=== PATIENT | male | born 1945 | race Caucasian/White ===

== ENCOUNTER → 2018-06-17 10:41 | Outpatient (CLI) | payer OTHER, SELFPAY ==
[2018-06-17 11:26] LABS: Add Manual Diff / Slide Review NO; Basophils Percent Auto 0.9 % (0-2); Eosinophils Percent Auto 2.5 % (2-4); Hematocrit 50.7 % (41-53); Hemoglobin 17.6 g/dL (13.5-17.5); Lymphocytes Percent Auto 31.2 % (25-40); Mean Corpuscular HGB Conc 34.6 % (30-36); Mean Corpuscular Hemoglobin 32.8 PG (26-34); Mean Corpuscular Volume 94.7 fL (80-100); Monocytes Percent Auto 10.9 % (3-14); Neutrophils Absolute Auto 2100 /uL (3000-5900); Neutrophils Percent Auto 54.5 % (50-75); Platelet Count 119 X10^3/uL (150-400); Red Blood Cell Count 5.36 X10^6/uL (4.5-5.9); Red Cell Distribution Width 13.6 % (11.6-14.8); White Blood Cell Count 3.9 X10^3/uL (4.5-11.0)
[2018-06-17 11:57] LABS: Alanine Aminotransferase 38 IU/L (21-72); Albumin 4.7 g/dL (3.5-5.0); Albumin Globulin Ratio 1.7 (1.0-2.8); Alkaline Phosphatase 48 U/L (38-126); Aspartate Aminotransferase 43 IU/L (17-59); Bilirubin Total 1.7 mg/dL (0.2-1.3); Blood Urea Nitrogen 24 mg/dL (9-20); Calcium 10.1 mg/dL (8.4-10.2); Carbon Dioxide 31 mmol/L (22-32); Chloride 101 mmol/L (98-107); Cholesterol 141 mg/dL (140-199); Estimated Glomerular Filt Rate > 60.0 mL/min (>60); Globulin 2.8 g/dL (1.7-4.1); Glucose 94 mg/dL (80-110); HDL Cholesterol 57 mg/dL (40-60); HEMOLYSIS < 15 (0-50); LDL Cholesterol Calculated 72 mg/dL (<100); Potassium 4.5 mmol/L (3.4-5.1); Sodium 142 mmol/L (137-145); Total Protein 7.5 g/dL (6.3-8.2); Triglycerides 61 mg/dL (35-150)
== END ==
PROVIDERS: Family Provider Internal Medicine; PCP Internal Medicine; Visit Provider Internal Medicine Cardiovascular Disease
DX: Z95.2 Presence of prosthetic heart valve (principal)
CPT/HCPCS: 36415; 80053; 80061; 85025

== ENCOUNTER → 2018-08-05 09:37 | Outpatient (CLI) | payer OTHER, SELFPAY ==
--- NOTE | 2018-08-05 | DI.US.S_ITS ---
PROCEDURE: US CAROTID DOPPLER BI INDICATIONS: BILATERAL CAROTID BRUITS TECHNIQUE: Color and pulse Doppler interrogation was performed of both carotid systems, with image documentation and velocity measurements. COMPARISON: None. FINDINGS: Stenosis calculations are based on SRU (Society of Radiologists in Ultrasound) criteria. Right side: Brachial blood pressure: 148/80 mm Hg. Common carotid artery peak systolic velocity: 78 cm/sec. Internal carotid artery peak systolic velocity: 88 cm/sec. Internal carotid artery end diastolic velocity: 19 cm/sec. External carotid artery peak systolic velocity: 51 cm/sec. ICA/CCA peak systolic ratio: 1.1. Urban scale imaging description: Moderate scattered plaque. Percent internal carotid artery stenosis: Less than 50%. Vertebral artery: Flow direction is antegrade. Left side: Brachial blood pressure: 156/80 mm Hg. Common carotid artery peak systolic velocity: 40 cm/sec. Internal carotid artery peak systolic velocity: 62 cm/sec. Internal carotid artery end diastolic velocity: 18 cm/sec. External carotid artery peak systolic velocity: 82 cm/sec. ICA/CCA peak systolic ratio: 1.6. Urban scale imaging description: Moderate scattered plaque. Percent internal carotid artery stenosis: Less than 50%. Vertebral artery: Not visualized. IMPRESSION: Less than 50% bilateral internal carotid artery stenosis. Dictated by: Ector Dominguez [facility] Interpreted: Matthew Yuen MD on 08/05/2018 at 10:40 Approved by: Matthew Yuen M.D. on 08/05/2018 at 11:09
== END ==
PROVIDERS: Family Provider Internal Medicine; PCP Internal Medicine; Visit Provider Internal Medicine Cardiovascular Disease
DX: R09.89 Other specified symptoms and signs involving the circulatory and respiratory systems (principal); I65.23 Occlusion and stenosis of bilateral carotid arteries
CPT/HCPCS: 93880

== ENCOUNTER → 2019-05-02 09:33 | Outpatient (CLI) | payer OTHER, SELFPAY ==
[2019-05-02 10:49] LABS: Cholesterol 184 mg/dL (140-199); HDL Cholesterol 43 mg/dL (40-60); LDL Cholesterol Calculated 123 mg/dL (<100); Triglycerides 90 mg/dL (35-150)
== END ==
PROVIDERS: Family Provider Internal Medicine; PCP Internal Medicine; Visit Provider Hospitalist
DX: I25.10 Atherosclerotic heart disease of native coronary artery without angina pectoris (principal)
CPT/HCPCS: 36415; 80061

== ENCOUNTER → 2019-09-28 19:10 | Outpatient (ROUT) | payer OTHER, SELFPAY ==
[2019-09-28 20:01] LABS: Aspartate Aminotransferase 41 IU/L (17-59); Blood Urea Nitrogen 21 mg/dL (9-20); Carbon Dioxide 29 mmol/L (22-32); Chloride 98 mmol/L (98-107); Cholesterol 184 mg/dL (140-199); Estimated Glomerular Filt Rate > 60.0 mL/min (>60); Glucose 137 mg/dL (80-110); HDL Cholesterol 51 mg/dL (40-60); HEMOLYSIS 19 (0-50); LDL Cholesterol Calculated 113 mg/dL (<100); Potassium 3.8 mmol/L (3.4-5.1); Sodium 138 mmol/L (137-145); Triglycerides 98 mg/dL (35-150)
[2019-09-28 20:28] LABS: TSH w/ Reflex to FT4 3.54 uIU/mL (0.47-4.68)
[2019-09-28 20:29] LABS: Prostate Specific Antigen Scrn 1.44 ng/mL (0.1-4.0)
== END ==
PROVIDERS: Family Provider Internal Medicine; PCP Internal Medicine; Visit Provider Internal Medicine
DX: I10 Essential (primary) hypertension (principal); I25.10 Atherosclerotic heart disease of native coronary artery without angina pectoris; N52.9 Male erectile dysfunction, unspecified; E78.2 Mixed hyperlipidemia
CPT/HCPCS: 80048; 80061; 84443; 84450; G0103

== ENCOUNTER → 2020-04-07 11:30 | Outpatient (CLI) | payer OTHER, SELFPAY ==
[2020-04-08 18:13] LABS: COVID19 Sendout Not Detected (Not Detect)
== END ==
PROVIDERS: Family Provider Internal Medicine; PCP Internal Medicine; Visit Provider Physician Assistant
DX: Z11.59 Encounter for screening for other viral diseases (principal)
CPT/HCPCS: 87635

== ENCOUNTER → 2020-04-09 08:54 | Outpatient (CLI) | payer OTHER, SELFPAY ==
[2020-04-09 10:10] LABS: BUN Creatinine Ratio 18.3 (6-22); Blood Urea Nitrogen 19 mg/dL (9-20); Calcium 9.4 mg/dL (8.4-10.2); Carbon Dioxide 29 mmol/L (22-32); Chloride 102 mmol/L (98-107); Cholesterol 165 mg/dL (140-199); Estimated Glomerular Filt Rate > 60.0 mL/min (>60); Glucose 115 mg/dL (80-110); HDL Cholesterol 57 mg/dL (40-60); HEMOLYSIS < 15 (0-50); LDL Cholesterol Calculated 94 mg/dL (<100); Potassium 4.2 mmol/L (3.4-5.1); Sodium 136 mmol/L (137-145); Triglycerides 69 mg/dL (35-150)
== END ==
PROVIDERS: Family Provider Internal Medicine; PCP Internal Medicine; Referring Provider Hospitalist; Visit Provider Hospitalist
DX: I25.10 Atherosclerotic heart disease of native coronary artery without angina pectoris (principal); Z95.1 Presence of aortocoronary bypass graft; I10 Essential (primary) hypertension
CPT/HCPCS: 36415; 80048; 80061

== ENCOUNTER 2020-04-10 08:23 | Day surgery (SDC) | payer OTHER, SELFPAY ==
--- NOTE | 2020-04-09 18:32 | PM.PREOP ---
Pre-operative Note COVID-19 COVID-19 status: Negative Interval Note History & Physical reviewed/Exam performed by Physician: Yes Changes to H&P: No H&P completed within 30 days and has changed as indicated here:: Patient had Chinese yoghurt 2 hours prior to arriving in the operating room suite. Surgery was delayed for 6 hours to allow for digestion.
--- NOTE | 2020-04-10 07:53 | P.OP_ITS ---
Operative Date/Time/Diagnoses Date of procedure: 04/10/20 Time of procedure: 09:45 Procedure & Clinicians Procedure: Preoperative diagnoses: 1. Right cortical and nuclear sclerotic cataract 2. Astigmatism which is to be corrected with a toric intraocular lens implant. 3. Desire for a multifocal implant. 4. Bovine aortic valve. 5. Sleep apnea CPAP dependent 6. Hypertension. 7. Status post triple bypass. 8. Status post strabismus surgery for exotropia. Postoperative diagnoses: 1. Cataract removal with phacoemulsification withPanoptix toric posterior chamber intraocular lens implant placed. Procedure: Phacoemulsification with posterior chamber Panoptix toric intraocular lens implant. Surgeon: Donna Narvaez MD Complications: None Specimen: None Implant: TFAT40+20.5 [place] 176. 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 He has had mild previous amblyopia in this eye and strabismus surgery with excellent result. 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 A Panoptix toric intra-ocular lens implant chosen. He understands there may still be residual prescription or need for glasses. The patient was taken to the operating room and proparacaine drops placed. Indelible ink macario were placed at the 90 and 180 degree meridian. The patient was placed on the operating room table and given IV sedation. A retrobulbar block insert consisting of 6 cc of 2% xylocaine without epinephrine mixed half and half with 0.5% Marcaine with 1 cc of hyaluronidase added is placed between the medial and lateral 1/3 of the inferior orbital rim. The eye is manually massaged for 30 sec, prepped using Betadine solution, and draped in the usual sterile fashion. Temporal approach was made, a 1 mm side-port incision was made 90? from the proposed corneal wound. Phenylephrine 1.5% mixed with 1% xylocaine 0.2 cc was placed into the anterior chamber. Viscoat followed by Healon was then placed. A 2.6 mm clear incision with a 2.6 mm blade was placed at the 170 degree meridian. Patient has severe sleep apnea and had to be constantly awakened during surgery. A 360 degree capsulorrhexis style capsulotomy was then performed with a cystitome needle on a Healon. Hydrodelineation and hydrodissection were performed. The phacoemulsification unit is introduced, and sculpting used to groove the central lens. It is then removed in chopping mode. Epi nucleus is removed with epinuclear mode and irrigation aspiration was used to remove the peripheral cortex. There is some cortex trapped under the incision which is then removed using extra viscoelastic. The posterior capsule is polished. The intraocular lens is selected, inspected, power confirmed, and placed in the posterior chamber at the desired meridian of 176 degrees. Perkinje images were used to center the IOL in the optical centerl. The pupil was not constricted. The wound was stromally hydrated and tested for leaks, there was none and it was left sutureless. Vigamox 0.1 cc was placed into the anterior chamber. Kenalog 0.2 cc was placed in the superior subconjunctival space. A drop of antibiotic and was placed and the eye was patched and shielded. The patient was stable and returned to the recovery room in excellent condition. Dictated by: Donna Narvaez MD Copy to: [facility] Same procedure as scheduled: Yes
[2020-04-10] MEDS: PROPARACAINE 0.5% OPHTH SOL 2 DROPS EYE-OP (13:41)
[2020-04-10] MEDS: CATARACT EYE COMPOUND (10 DROPS/SYRINGE) 3 DROPS EYE-OP (13:41)
[2020-04-10 13:42] VITALS: BP 177/89; PULSE 54; RESP 16; TEMP 36.3; O2SAT 99; BMI 30.1
[2020-04-10] MEDS: CHONDROIDTIN/SOD HYALURONATE 1.05 ML SYRINGE INTRAOCULA (14:37)
[2020-04-10] MEDS: ERYTHROMYCIN OPHTH 1 GM OINT 1 APPLIC EYE-RIGHT (14:37)
[2020-04-10] MEDS: HYALURONATE SODIUM 10 MG/ML SYRINGE INJ (14:37)
[2020-04-10] MEDS: MOXIFLOXACIN INJ 5 MG/ML VIAL EYE-OP (14:37)
[2020-04-10] MEDS: PHENYLEPHRINE/LIDOCAINE VIAL (OR) 0.2 ML EYE-OP (14:38)
[2020-04-10] MEDS: TRIAMCINOLONE 50 MG/5 ML VIAL INJ (14:38)
[2020-04-10] MEDS: BALANCED SALT IRRIG SOLN NO.2 500 ML, EPINEPHrine 1 MG IRR (14:39)
[2020-04-10] MEDS: LIDOCAINE 2% 4 ML, BUPIVACAINE 0.5% (PF) 4 ML, HYALURONIDASE 150 UNIT INJ (14:40)
[2020-04-10 15:20] VITALS: BP 151/82; PULSE 53; RESP 16; TEMP 36.6; O2SAT 97
== END 2020-04-10 15:40 | disposition home or self-care (01) ==
LOC: OR 08:25
PROVIDERS: PCP Internal Medicine; Referring Provider Internal Medicine; Visit Provider Ophthalmology
PROC: (CPT 66984; principal; 2020-04-10 09:45)
DX: H25.811 Combined forms of age-related cataract, right eye (principal); H52.201 Unspecified astigmatism, right eye; G47.33 Obstructive sleep apnea (adult) (pediatric); I10 Essential (primary) hypertension
CPT/HCPCS: 66984; J0171; J2250; J2704; J3301; J3470; V2787; V2788

== ENCOUNTER → 2020-04-21 10:11 | Outpatient (CLI) | payer OTHER, SELFPAY ==
[2020-04-23 03:36] LABS: COVID19 Sendout Not Detected (Not Detected)
== END ==
PROVIDERS: PCP Internal Medicine; Visit Provider Physician Assistant
DX: Z11.59 Encounter for screening for other viral diseases (principal)
CPT/HCPCS: 87635

== ENCOUNTER 2020-04-24 09:11 | Day surgery (SDC) | payer OTHER, SELFPAY ==
--- NOTE | 2020-04-22 12:47 | PM.PREOP ---
Pre-operative Note COVID-19 COVID-19 status: Negative Interval Note History & Physical reviewed/Exam performed by Physician: Yes Changes to H&P: No
[2020-04-24] VITALS (7 sets, daily range): BP systolic 112–163; BP diastolic 68–86; PULSE 45–62; RESP 13–16; TEMP 36.2–36.6; O2SAT 91–98; BMI 30.6
[2020-04-24] MEDS: PROPARACAINE 0.5% OPHTH SOL 2 DROPS EYE-OP ×2 (10:03→10:50)
[2020-04-24] MEDS: CATARACT EYE COMPOUND (10 DROPS/SYRINGE) 3 DROPS EYE-OP (10:05)
--- NOTE | 2020-04-24 10:39 | P.OP_ITS ---
Operative Date/Time/Diagnoses Date of procedure: 04/24/20 Time of procedure: 10:45 Procedure & Clinicians Procedure: Preoperative diagnoses: 1. Nuclear sclerotic cataract 2. Astigmatism which is to be corrected with a toric intraocular lens implant. 3. Presbyopia which he likes to correct with a multifocal intraocular lens implant. 4. Severe sleep apnea with use of CPAP Postoperative diagnoses: 1. Cataract removal with phacoemulsification with PanOptix toric posterior chamber intraocular lens implant placed. Procedure: Phacoemulsification with posterior chamber toric intraocular lens implant. Surgeon: Donna Narvaez MD Complications: None Specimen: None Implant: TFAT40+21.0 [place] 173 Blood loss: None Anesthesia: Retrobulbar with monitored standby and laryngeal mask airw Aangela massy due to sleep apnea. Description of procedure: Patient presents with a complaint of decreased vision due to cataract which is affecting activities of daily living distance and near. 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 This is his dominant eye sees a slight a mblyopia in his right. He understands the extra risk of surgery during COVID-19 and has tested negative for the virus.The patient wants surgery to improve vision and astigmatism. Due to severe at sleep apnea during his last surgery it was decided it was best to give him a laryngeal mask airway in addition to his retrobulbar block. The patient was taken to the operating room and proparacaine drops placed. Indelible ink macario were placed at the 90 and 180 degree meridian. The patient was placed on the operating room table and given IV sedation and then a laryngeal airway inserted by anesthesia. A retrobulbar block insert consisting of 6 cc of 2% xylocaine without epinephrine mixed half and half with 0.5% Marcaine with 1 cc of hyaluronidase added is placed between the medial and lateral 1/3 of the inferior orbital rim. The eye is manually massaged for 30 sec, prepped using Betadine solution, and draped in the usual sterile fashion. Temporal approach was made, a 1 mm side-port incision was made 90? from the proposed corneal wound. Phenylephrine 1.5% mixed with 1% xylocaine 0.2 cc was placed into the anterior chamber. Viscoat followed by Healon was then placed. A 2.6 mm clear incision with a 2.6 mm blade was placed at the 170 degree meridian. A 360 degree capsulorrhexis style capsulotomy was then performed with a cystitome needle on a [employer]. Hydrodelineation and hydrodissection were performed. The phacoemulsification unit is introduced, and sculpting used to groove the central lens. It is then removed in chopping mode. Epi nucleus is removed with epinuclear mode and irrigation aspiration was used to remove the peripheral cortex. The posterior capsule is polished. The intraocular lens is selected, inspected, power confirmed, and placed in the posterior chamber at the desired meridian of 173 degrees. The pupil was not constricted. The wound was stromally hydrated and tested for leaks, there was none and it was left sutureless. Vigamox 0.1 cc was placed into the anterior chamber. Kenalog 0.2 cc was placed in the superior subconjunctival space. A drop of antibiotic and was placed and the eye was patched and shielded. The patient was stable and returned to the recovery room in excellent condition. Dictated by: Donna Narvaez MD Copy to: [facility] Same procedure as scheduled: Yes
[2020-04-24] MEDS: LIDOCAINE 2% 4 ML, BUPIVACAINE 0.5% (PF) 4 ML, HYALURONIDASE 150 UNIT INJ (11:00)
[2020-04-24] MEDS: CHONDROIDTIN/SOD HYALURONATE 1.05 ML SYRINGE INTRAOCULA (11:12)
[2020-04-24] MEDS: HYALURONATE SODIUM 10 MG/ML SYRINGE INJ (11:12)
[2020-04-24] MEDS: MOXIFLOXACIN INJ 5 MG/ML VIAL EYE-OP (11:12)
[2020-04-24] MEDS: ERYTHROMYCIN OPHTH 1 GM OINT 1 APPLIC EYE-LEFT (11:12)
[2020-04-24] MEDS: TRIAMCINOLONE 50 MG/5 ML VIAL INJ (11:13)
[2020-04-24] MEDS: PHENYLEPHRINE/LIDOCAINE VIAL (OR) 0.2 ML EYE-OP (11:13)
[2020-04-24] MEDS: BALANCED SALT IRRIG SOLN NO.2 500 ML, EPINEPHrine 1 MG IRR (11:14)
== END 2020-04-24 12:45 | disposition home or self-care (01) ==
LOC: OR 09:13
PROVIDERS: PCP Internal Medicine; Referring Provider Ophthalmology; Visit Provider Ophthalmology
PROC: (CPT 66984; principal; 2020-04-24 10:45)
DX: H25.12 Age-related nuclear cataract, left eye (principal); H52.202 Unspecified astigmatism, left eye; H52.4 Presbyopia; G47.33 Obstructive sleep apnea (adult) (pediatric)
CPT/HCPCS: 66984; J0171; J2704; J3301; J3470; V2788

== ENCOUNTER → 2021-03-29 09:34 | Outpatient (CLI) | payer OTHER, SELFPAY ==
[2021-03-29 10:34] LABS: COVID19 -Nasal RAPID Negative (Negative)
== END ==
PROVIDERS: PCP Internal Medicine; Referring Provider Physician Assistant; Visit Provider Physician Assistant
DX: Z20.822 Contact with and (suspected) exposure to COVID-19 (principal)
CPT/HCPCS: 87635

== ENCOUNTER → 2021-03-31 08:52 | Outpatient (CLI) | payer OTHER, SELFPAY ==
--- NOTE | 2021-03-31 | DI.ECHO.S_ITS ---
[place] [facility]---------+ [facility] +---------+ : : [address] : : : : [id number] : : : : Phone: [phone]+ Echocardiogram Report + + :Name: CRIS ROSADO Study Date: 03/31/2021 Height: 70 in : :[facility] : Weight: 220 lb : : Gender: Male BSA: 2.2 m2 : :: 1945 Age: 75 yrs BP: 198/107 mmHg: :Reason For Study: Hyperlipidemia : :Ordering Physician: Corina : :Ez Leong Performed By: Juanito Terry : :Referring: CORINA LEONG : + + Interpretation Summary The left ventricle is normal in size. There is moderate concentric left ventricular hypertrophy. The ejection fraction is estimated to be 55-60%. Diastolic parameters suggest a pseudonormalization pattern, consistent with probable elevated filling pressures. The right ventricle is normal size. Right ventricular systolic function is mildly reduced. Right ventricular systolic function has not changed since previous exam. There is restriction of posterior mitral leaflet. Cannot rule out mitral valve repair. No significant mitral stenosis seen. There is moderate mitral regurgitation. Compared to the prior echo study, there has been no change in the severity of mitral regurgitation. There is a bioprosthetic aortic valve. The prosthetic aortic valve is well-seated. The peak aortic velocity is 1.92 m/sec. The aortic valve mean gradient is 9.0 mmHg. The peak aortic velocity on the previous exam was 2.9 m/sec. There is mild aortic regurgitation. There is moderate pulmonic regurgitation. The IVC is of normal diameter and collapses greater than 50% with a sniff. This suggests a low right atrial pressure of 3 mm Hg. Mild atherosclerotic plaque(s) in the aortic arch. Procedure: A two-dimensional transthoracic echocardiogram with color flow and Doppler was performed. The study quality was technically adequate. Comparison is made with the echocardiogram of 1943. The patient had a bundle branch block rhythm during the exam. Left Ventricle: The left ventricle is normal in size. There is moderate concentric left ventricular hypertrophy. There is no thrombus. The ejection fraction is estimated to be 55-60%. Septal motion is consistent with conduction abnormality. Diastolic parameters suggest a pseudonormalization pattern, consistent with probable elevated filling pressures. Right Ventricle: The right ventricle is normal size. Right ventricular systolic function is mildly reduced. Right ventricular systolic function has not changed since previous exam. Atria: The left atrium is severely dilated. There has been no significant change since the previous study. The right atrium is mildly dilated. There is no Doppler evidence for an interatrial shunt. Mitral Valve: There is mild mitral annular calcification. The mitral valve leaflets are mildly calcified. There is restriction of posterior mitral leaflet. Cannot rule out mitral valve repair. No significant mitral stenosis seen. The mitral regurgitant jet is eccentrically directed. There is moderate mitral regurgitation. Compared to the prior echo study, there has been no change in the severity of mitral regurgitation. Aortic Valve: There is a bioprosthetic aortic valve. The prosthetic aortic valve is well-seated. There is probable normal prosthetic aortic valve function. The peak aortic velocity is 1.92 m/sec. The aortic valve mean gradient is 9.0 mmHg. The peak aortic velocity on the previous exam was 2.9 m/sec. There is mild aortic regurgitation. Tricuspid Valve: The tricuspid valve is normal. Pulmonary artery pressures cannot be estimated because of the lack of a measurable TR jet velocity but the IVC suggests a CVP of around 3 mmHg. There is mild tricuspid regurgitation. Pulmonic Valve: The pulmonic valve leaflets are thin and pliable; valve motion is normal. There is moderate pulmonic regurgitation. Great Vessels: The aortic root is not well visualized. The ascending aorta is mildly enlarged. Mild atherosclerotic plaque(s) in the aortic arch. The IVC is of normal diameter and collapses greater than 50% with a sniff. This suggests a low right atrial pressure of 3 mm Hg. Pericardium/ Pleura There is no pericardial effusion. There is no pleural effusion. MMode/2D Measurements & Calculations LVIDd: 5.2 cm asc Aorta Diam: 4.1 cm LVIDs: 3.8 cm FS: 26.9 % IVSd: 1.6 cm LVPWd: 1.6 cm LV cox. diameter/BSA (cm/m^2): 2.4 LV sys. diameter/BSA (cm/m^2): 1.7 LA dimension: 5.0 cm RA long axis: 5.8 cm LA A2 area: 27.0 cm2 LA A4 area: 28.1 cm2 LA length (vol): 6.9 cm LA vol: 94.0 ml LA vol index: 43.3 ml/m2 TAPSE_phl: 1.4 cm Doppler Measurements & Calculations Ao V2 max: 192.0 cm/sec LVOT Max Jose: 118.0 cm/sec Ao V2 mean: 142.0 cm/sec LV V1 max P.6 mmHg Ao max P.0 mmHg LV V1 VTI: 24.7 cm Ao mean P.0 mmHg sev ratio: 0.61 Ao V2 VTI: 40.4 cm MV E max jose: 160.0 cm/sec PA V2 max: 179.0 cm/sec MV A max jose: 145.0 cm/sec PA V2 mean: 110.0 cm/sec MV E/A: 1.1 PA mean P.0 mmHg Med Peak E' Jose: 3.6 cm/sec PA pr(Accel): 42.1 mmHg E/E' med: 44.7 Lat Peak E' Jose: 8.0 cm/sec E/E' lat: 19.9 E/e' average: 32.3 MV dec time: 0.30 sec MR VTI: 227.0 cm AV VR_phl: 0.61 MV P1/2t-pr_phl: 89.0 msec Reading Physician:05:36 PM
--- NOTE | 2021-03-31 | DI.NM.S_ITS ---
PROCEDURE: NM MARCOS PERF SPECT R&S PHARM Rest and pharmacological stress myocardial perfusion SPECT with gated imaging and ejection fraction RADIOPHARMACEUTICAL: 25.7 mCi Tc-99m tetrafosmin IV at rest and 35.0 mCi Tc-99m tetrafosmin IV at peak effect of pharmacological stress. [id number] was performed. INDICATIONS: Hyperlipidemia Atherosclerotic heart disease TECHNIQUE: Radiopharmaceutical was injected at peak stress test, and also at rest. SPECT images were obtained. SPECT myocardial perfusion images were displayed in short axis, horizontal long axis, and vertical long axis views. Gated images were reviewed using Truveris software. COMPARISON: None. CARDIAC STRESS: A pharmacologic stress test was performed under the supervision of an attending staff, using an infusion of lexiscan 0.4mg IV X1. Hemodynamic data: There is normal blood pressure and heart rate response to pharmacologic stress. Symptoms: The patient had chest pain with lexiscan. Aminophylline: none EKG: Non-diagnostic ECG due to baseline LBBB; no ectopy. FINDINGS: Raw data: There is good myocardial uptake of radiotracer. No significant motion artifacts. Left ventricle function: Gated images demonstrate significant septal dysynchrony present. No transient ischemic dilation; TID is 1.14 (normal less than 1.3). Left ventricle resting end diastolic volume is 284 mL. Left ventricle stress ejection fraction is 45%; normal range is above 45%. Myocardial perfusion: There is moderate intense fixed defect in the inferior wall and severely intense defect at the apex, consistent with prior infarction. No ischemia. IMPRESSION: Abnormal nuclear stress test consistent with prior infarction. No ischemia. 1) There is moderate intense fixed defect in the inferior wall and severely intense defect at the apex, consistent with prior inferior and apical infarctions. No ischemia. 2) Enlarged left ventricle (EDV 284cc) with mildly reduced systolic function (EF post stress 45%). Significant septal dysynchrony present, probably due to the baseline LBBB. 3) ECG non-diagnostic due to baseline LBBB. 4) Non-diagnostic chest pain with lexiscan. 5) Significant hypertension present during the study (resting BP 170/106mmHg). 6) No prior nuclear stress test available for comparison. Dictated by: Lucy Montalvo MD on 04/01/2021 at 17:27 Approved by: Lucy Montalvo MD on 04/01/2021 at 17:31
== END ==
PROVIDERS: PCP Internal Medicine; Referring Provider Internal Medicine Cardiovascular Disease; Visit Provider Internal Medicine Cardiovascular Disease
DX: I08.3 Combined rheumatic disorders of mitral, aortic and tricuspid valves (principal); I77.89 Other specified disorders of arteries and arterioles; I70.0 Atherosclerosis of aorta; I25.10 Atherosclerotic heart disease of native coronary artery without angina pectoris; E78.5 Hyperlipidemia, unspecified; Z95.2 Presence of prosthetic heart valve
CPT/HCPCS: 78452; 93017; 93306; A9502; J2785

== ENCOUNTER → 2021-04-14 10:49 | Outpatient (CLI) | payer OTHER, SELFPAY ==
[2021-04-14 13:19] LABS: Blood Urea Nitrogen 16 mg/dL (9-20); Carbon Dioxide 30 mmol/L (22-32); Chloride 102 mmol/L (98-107); Estimated Glomerular Filt Rate > 60.0 mL/min (>60); Glucose 116 mg/dL (80-110); HEMOLYSIS < 15 (0-50); Potassium 3.9 mmol/L (3.4-5.1); Sodium 137 mmol/L (137-145)
== END ==
PROVIDERS: PCP Internal Medicine; Referring Provider Internal Medicine Cardiovascular Disease; Visit Provider Internal Medicine Cardiovascular Disease
DX: I10 Essential (primary) hypertension (principal)
CPT/HCPCS: 36415; 80048

== ENCOUNTER → 2021-12-23 10:42 | Outpatient (CLI) | payer OTHER, SELFPAY ==
[2021-12-23 13:36] LABS: BUN Creatinine Ratio 21.1 (6-22); Blood Urea Nitrogen 20 mg/dL (9-20); Calcium 9.8 mg/dL (8.4-10.2); Carbon Dioxide 29 mmol/L (22-32); Chloride 100 mmol/L (98-107); Cholesterol 204 mg/dL (140-199); Estimated Glomerular Filt Rate > 60 mL/min (>60); Glucose 99 mg/dL (80-110); HDL Cholesterol 68 mg/dL (40-60); HEMOLYSIS < 15 (0-50); LDL Cholesterol Calculated 117 mg/dL (<100); Potassium 3.8 mmol/L (3.4-5.1); Sodium 138 mmol/L (137-145); Triglycerides 96 mg/dL (35-150)
== END ==
PROVIDERS: PCP Internal Medicine; Referring Provider Internal Medicine Cardiovascular Disease; Visit Provider Internal Medicine Cardiovascular Disease
DX: E78.5 Hyperlipidemia, unspecified (principal)
CPT/HCPCS: 36415; 80048; 80061

== ENCOUNTER 2022-01-27 14:18 | Emergency (ER) | payer OTHER, SELFPAY ==
[2022-01-27] VITALS (25 sets, daily range): BP systolic 127–182; BP diastolic 60–81; PULSE 45–61; RESP 15–33; TEMP 36.6; O2SAT 93–97
--- NOTE | 2022-01-27 15:04 | DI.RAD.S_ITS ---
PROCEDURE: XR CHEST 1V INDICATIONS: shortness of breath TECHNIQUE: One view of the chest was acquired. COMPARISON: [facility], , CHEST 2 VIEW, 10/29/2009, 11:12. FINDINGS: Surgical changes and devices: None. Lungs and pleura: Minimal left basilar atelectasis and or infiltrate. Right lung and pleural spaces clear Mediastinum: Heart size is enlarged. No vascular congestion present. Mediastinal vascular clips and midline sternal wires present. Cardiac valve prosthesis noted. Bones and chest wall: No suspicious bony lesions. Overlying soft tissues appear unremarkable. IMPRESSION: Minimal left basilar atelectasis and or infiltrate. No pneumothorax. Cardiomegaly without vascular congestion Approved by: Steven Garcia M.D. on 01/27/2022 at 14:48
[2022-01-27 15:29] LABS: Lactate (Lactic Acid) 0.9 mmol/L (0.7-2.1)
[2022-01-27 15:30] LABS: Alanine Aminotransferase 31 IU/L (<50); Albumin 4.5 g/dL (3.5-5.0); Albumin Globulin Ratio 1.4 (1.0-2.8); Alkaline Phosphatase 61 U/L (38-126); Aspartate Aminotransferase 38 IU/L (17-59); BUN Creatinine Ratio 17.7 (6-22); Bilirubin Total 2.4 mg/dL (0.2-1.3); Blood Urea Nitrogen 17 mg/dL (9-20); Calcium 9.5 mg/dL (8.4-10.2); Carbon Dioxide 28 mmol/L (22-32); Chloride 103 mmol/L (98-107); Creatine Kinase 190 U/L (55-170); Estimated Glomerular Filt Rate > 60 mL/min (>60); Globulin 3.2 g/dL (1.7-4.1); Glucose 98 mg/dL (80-110); HEMOLYSIS < 15 (0-50); Potassium 3.8 mmol/L (3.4-5.1); Sodium 139 mmol/L (137-145); Total Protein 7.7 g/dL (6.3-8.2)
[2022-01-27 15:35] LABS: Add Manual Diff / Slide Review NO; Basophils Absolute Auto 0 /uL (0-100); Basophils Percent Auto 0.4 % (0-2); Eosinophils Absolute Auto 200 /uL (0-450); Eosinophils Percent Auto 3.6 % (2-4); Hematocrit 45.2 % (41-53); Hemoglobin 15.6 g/dL (13.5-17.5); Lymphocytes Absolute Auto 1200 /uL (1100-4500); Lymphocytes Percent Auto 22.2 % (25-40); Mean Corpuscular HGB Conc 34.6 % (30-36); Mean Corpuscular Hemoglobin 33.6 PG (26-34); Monocytes Absolute Auto 700 /uL (0-900); Monocytes Percent Auto 13.3 % (3-14); Neutrophils Absolute Auto 3200 /uL (1500-7000); Neutrophils Percent Auto 60.5 % (50-75); Platelet Count 116 X10^3/uL (150-400); Red Blood Cell Count 4.66 X10^6/uL (4.5-5.9); Red Cell Distribution Width 14.2 % (11.6-14.8); White Blood Cell Count 5.2 X10^3/uL (4.5-11.0)
[2022-01-27 15:42] LABS: Troponin I 0.051 ng/mL (0.01-0.034)
[2022-01-27 15:45] LABS: CKMB % Relative Index 2.8 % (1.5-5.0); Creatine Kinase MB 5.41 ng/mL (<2.37)
[2022-01-27 16:21] LABS: COVID19 -Nasal RAPID Negative (Negative)
[2022-01-27 17:21] LABS: Creatine Kinase 156 U/L (55-170)
[2022-01-27 17:34] LABS: NT-proBNP (BNP-Adult 18+) 541 pg/mL (<450); Troponin I 0.059 ng/mL (0.01-0.034)
[2022-01-27 17:36] LABS: CKMB % Relative Index 2.3 % (1.5-5.0); Creatine Kinase MB 3.63 ng/mL (<2.37)
--- NOTE | 2022-01-27 18:28 | ED.WEAKNESS ---
HPI - Weakness General Chief complaint: Shortness of Breath/Dyspnea Stated complaint: Fatigue, dizzy- sent by [facility] Time Seen by Provider: 01/27/22 15:46 Source: patient Mode of arrival: Ambulatory History of Present Illness HPI Narrative: 76M former smoker with extensive cardiac history including CAD, CABG, valve replacements ([place]) HTN, hyperlipidemia presents with fatigue and exertional dyspnea for the past few weeks which has become significantly worse over the past few days. He denies any pain, diaphoresis or nausea. He has worse SOB with exertion and likely laying flat. He had an echo and stress test about a month ago at [facility] which was apparently fine. He denies medication or dietary change. He has had no fever, chills, runny nose, sore throat, abdominal pain or urinary complaints. He's had no travel and is otherwise well and free of complaint. Related Data Home Medications Medication Instructions Recorded Confirmed Respironics Dreamstation CPAP #1 ea 12/22/18 04/24/21 amoxicillin 500 mg capsule 2,000 mg PO ONCE HS PRN 04/10/20 04/24/21 anastrozole 1 mg tablet 2 mg PO QWEEK 04/10/20 04/24/21 aspirin 81 mg tablet,delayed 81 mg PO DAILY 04/10/20 04/24/21 release (Aspirin Low Dose) atorvastatin 10 mg tablet 10 mg PO DAILY 04/10/20 04/24/21 hydrochlorothiazide 12.5 mg tablet 12.5 mg PO DAILY 04/10/20 04/24/21 testosterone cypionate 200 mg/mL 100 mg IM QWEEK 04/10/20 04/24/21 intramuscular kit Previous Rx's Medication Instructions Recorded furosemide 40 mg tablet 40 mg PO DAILY #3 tab 01/27/22 Allergies Allergy/AdvReac Type Severity Reaction Status Date / Time Sulfa (Sulfonamide Allergy Unknown as a Verified 04/24/21 09:39 Antibiotics) child, doesn't remember Review of Systems Review of Systems Narrative: GENERAL: Denies chills, fatigue, malaise, fever, sweats. HEENT: Denies sinus pain, ear pain, sore throat, difficulty swallowing, dizziness. RESPIRATORY: See HPI CARDIOVASCULAR: Denies chest pain, palpitations, orthopnea, edema, GASTROINTESTINAL: Denies nausea, vomiting, abdominal pain, diarrhea, constipation, melena. : Denies dysuria, frequency, incontinence, hematuria, urinary retention. MUSCULOSKELETAL: denies weakness, joint pain, or bony pain SKIN: Denies rash, skin lesions, or other NEUROLOGIC: Denies weakness, headache, numbness, change in speech, confusion, seizures, incoordination. PSYCHIATRIC: No concerning psychosocial issues. 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 Obstructive sleep apnea of adult Surgical History History of uvulopalatopharyngoplasty S/P AVR (aortic valve replacement) S/P CABG x 2 Social History marital status: details: barrie Thompson number of children: 3 household members: spouse lives independently: Yes caregiver/support person: No housing: house Smoking Status: Former smoker alcohol intake: current during the past year weight has: remained stable additional social history: Goal weight is 170 lbs Smoking Status: Former smoker alcohol intake frequency: 0-2 drinks per day Substance Use Type: does not use Exam Narrative Exam Narrative: GENERAL: [76] year old patient appears stated age. Well-developed patient, in mild distress. HEAD: Atraumatic. Normocephalic. EYES: Pupils equal round and reactive. Extraocular motions intact. No scleral icterus. No injection or drainage. ENT: Nose without bleeding, purulent drainage. Throat without erythema, tonsillar hypertrophy or exudate. Airway patent. NECK: Trachea midline. Non tender CARDIOVASCULAR: Regular rate and rhythm without murmurs, gallops, or rubs. RESPIRATORY: Faint crackles in bilateral bases, no significant increased work of breathing GASTROINTESTINAL: Abdomen soft, non-tender, nondistended. EXTREMITIES: No edema or joint tenderness. BACK: Nontender without deformity or crepitance. No flank tenderness. NEURO: AOx3. SKIN: No rash or erythema of visible areas Initial Vital Signs Initial Vital Signs: Vital Signs Temperature 97.8 F 01/27/22 14:41 Pulse Rate 59 L 01/27/22 14:41 Respiratory Rate 24 01/27/22 14:41 Blood Pressure 182/81 H 01/27/22 14:41 Pulse Oximetry 97 01/27/22 14:41 Course Orders Ordered: ED Orders 01/27/22 20:18 Troponin & CK Cardiac Panel Stat Discontinued Medications Furosemide (Furosemide 40 Mg Tablet) 40 mg PO NOW ONE Stop: 01/27/22 21:10 Last Admin: 01/27/22 21:24 Dose: 40 mg Documented by: ELLEN Consultations Consultation #1: Discussed with on-call Cardiology as Husam, patient's history reviewed including EKGs, labs etc.. He has had left bundle branch block for quite some time and resting heart rate tends to be in the 50s per prior notes according to cardiology. We discussed presentation and agree that after 2nd troponin as long as it is unremarkable patient should be diuresed were few days as an outpatient and close follow-up encouraged. Vital Signs Vital signs: Vital Signs - 8 hr 01/27/22 18:30 01/27/22 18:31 01/27/22 19:00 Pulse Rate 50 L 53 L 49 L Respiratory Rate 19 27 H 23 Blood Pressure 127/69 Pulse Oximetry 94 94 94 01/27/22 19:01 01/27/22 19:30 01/27/22 19:31 Pulse Rate 54 L 52 L 50 L Respiratory Rate 28 H 27 H 23 Blood Pressure 143/64 H 179/68 H Pulse Oximetry 94 95 94 01/27/22 20:00 01/27/22 20:01 01/27/22 20:30 Pulse Rate 50 L 49 L 50 L Respiratory Rate 22 22 Blood Pressure 144/67 H Pulse Oximetry 95 94 94 01/27/22 21:00 Pulse Rate 54 L Respiratory Rate 20 Blood Pressure Pulse Oximetry 97 MDM - Weakness Lab Data Result diagrams: 01/27/22 14:48 01/27/22 14:48 Labs: Lab Results 01/27/22 01/27/22 01/27/22 Range/Units 14:48 14:48 14:48 WBC 5.2 (4.5-11.0) X10^3/uL RBC 4.66 (4.5-5.9) X10^6/uL Hgb 15.6 (13.5-17.5) g/dL Hct 45.2 (41-53) % MCV 97.0 (80-100) fL MCH 33.6 (26-34) PG MCHC 34.6 (30-36) % RDW 14.2 (11.6-14.8) % Plt Count 116 L (150-400) X10^3/uL Neut % (Auto) 60.5 (50-75) % Lymph % (Auto) 22.2 L (25-40) % Mcintosh % (Auto) 13.3 (3-14) % Eos % (Auto) 3.6 (2-4) % Baso % (Auto) 0.4 (0-2) % Neut # (Auto) 3200 (0078-4317) /uL Lymph # (Auto) 1200 (2710-3980) /uL Mcintosh # (Auto) 700 (0-900) /uL Eos # (Auto) 200 (0-450) /uL Baso # (Auto) 0 (0-100) /uL Sodium 139 (137-145) mmol/L Potassium 3.8 (3.4-5.1) mmol/L Chloride 103 (98-107) mmol/L Carbon Dioxide 28 (22-32) mmol/L BUN 17 (9-20) mg/dL Creatinine 0.96 (0.66-1.25) mg/dL Estimated GFR > 60 (>60) mL/min BUN/Creatinine Ratio 17.7 (6-22) Glucose 98 (80-110) mg/dL Lactate 0.9 (0.7-2.1) mmol/L Calcium 9.5 (8.4-10.2) mg/dL Total Bilirubin 2.4 H (0.2-1.3) mg/dL AST 38 (17-59) IU/L ALT 31 (<50) IU/L Alkaline Phosphatase 61 (38-126) U/L Total Creatine Kinase 190 H (55-170) U/L CK-MB (CK-2) 5.41 H (<2.37) ng/mL CK-MB (CK-2) Rel Index 2.8 (1.5-5.0) % Troponin I 0.051 H (0.01-0.034) ng/mL NT-Pro-B Natriuret Pep (<450) pg/mL Total Protein 7.7 (6.3-8.2) g/dL Albumin 4.5 (3.5-5.0) g/dL Globulin 3.2 (1.7-4.1) g/dL Albumin/Globulin Ratio 1.4 (1.0-2.8) SARS-CoV-2 (PCR) (Negative) 01/27/22 01/27/22 01/27/22 Range/Units 14:48 15:56 17:02 WBC (4.5-11.0) X10^3/uL RBC (4.5-5.9) X10^6/uL Hgb (13.5-17.5) g/dL Hct (41-53) % MCV (80-100) fL MCH (26-34) PG MCHC (30-36) % RDW (11.6-14.8) % Plt Count (150-400) X10^3/uL Neut % (Auto) (50-75) % Lymph % (Auto) (25-40) % Mcintosh % (Auto) (3-14) % Eos % (Auto) (2-4) % Baso % (Auto) (0-2) % Neut # (Auto) (2600-5362) /uL Lymph # (Auto) (1021-5827) /uL Mcintosh # (Auto) (0-900) /uL Eos # (Auto) (0-450) /uL Baso # (Auto) (0-100) /uL Sodium (137-145) mmol/L Potassium (3.4-5.1) mmol/L Chloride (98-107) mmol/L Carbon Dioxide (22-32) mmol/L BUN (9-20) mg/dL Creatinine (0.66-1.25) mg/dL Estimated GFR (>60) mL/min BUN/Creatinine Ratio (6-22) Glucose (80-110) mg/dL Lactate (0.7-2.1) mmol/L Calcium (8.4-10.2) mg/dL Total Bilirubin (0.2-1.3) mg/dL AST (17-59) IU/L ALT (<50) IU/L Alkaline Phosphatase (38-126) U/L Total Creatine Kinase Cancelled 156 (55-170) U/L CK-MB (CK-2) Cancelled 3.63 H (<2.37) ng/mL CK-MB (CK-2) Rel Index Cancelled 2.3 (1.5-5.0) % Troponin I Cancelled 0.059 H (0.01-0.034) ng/mL NT-Pro-B Natriuret Pep 541 H (<450) pg/mL Total Protein (6.3-8.2) g/dL Albumin (3.5-5.0) g/dL Globulin (1.7-4.1) g/dL Albumin/Globulin Ratio (1.0-2.8) SARS-CoV-2 (PCR) Negative (Negative) 01/27/22 Range/Units 20:18 WBC (4.5-11.0) X10^3/uL RBC (4.5-5.9) X10^6/uL Hgb (13.5-17.5) g/dL Hct (41-53) % MCV (80-100) fL MCH (26-34) PG MCHC (30-36) % RDW (11.6-14.8) % Plt Count (150-400) X10^3/uL Neut % (Auto) (50-75) % Lymph % (Auto) (25-40) % Mcintosh % (Auto) (3-14) % Eos % (Auto) (2-4) % Baso % (Auto) (0-2) % Neut # (Auto) (5657-5214) /uL Lymph # (Auto) (8997-8018) /uL Mcintosh # (Auto) (0-900) /uL Eos # (Auto) (0-450) /uL Baso # (Auto) (0-100) /uL Sodium (137-145) mmol/L Potassium (3.4-5.1) mmol/L Chloride (98-107) mmol/L Carbon Dioxide (22-32) mmol/L BUN (9-20) mg/dL Creatinine (0.66-1.25) mg/dL Estimated GFR (>60) mL/min BUN/Creatinine Ratio (6-22) Glucose (80-110) mg/dL Lactate (0.7-2.1) mmol/L Calcium (8.4-10.2) mg/dL Total Bilirubin (0.2-1.3) mg/dL AST (17-59) IU/L ALT (<50) IU/L Alkaline Phosphatase (38-126) U/L Total Creatine Kinase 145 (55-170) U/L CK-MB (CK-2) 3.86 H (<2.37) ng/mL CK-MB (CK-2) Rel Index 2.7 (1.5-5.0) % Troponin I 0.057 H (0.01-0.034) ng/mL NT-Pro-B Natriuret Pep (<450) pg/mL Total Protein (6.3-8.2) g/dL Albumin (3.5-5.0) g/dL Globulin (1.7-4.1) g/dL Albumin/Globulin Ratio (1.0-2.8) SARS-CoV-2 (PCR) (Negative) Imaging Data Chest x-ray: Radiologist Impression: [address] [address] XRay Report Signed Patient: Ramo Pickering MR#: [id number] : 1945 Acct:[id number] Age/Sex: 76 / M Date of Service: 01/27/22 Loc: ED Accession Number: [id number] ?? Procedure: XR chest 1V Ordering Provider: Adrianne Morton D.O. PROCEDURE:? XR CHEST 1V ? INDICATIONS:? shortness of breath ? TECHNIQUE:? One view of the chest was acquired.? ? COMPARISON:? [facility], , CHEST 2 VIEW, 10/29/2009, 11:12. ? FINDINGS:? ? Surgical changes and devices:? None.? ? Lungs and pleura:? Minimal left basilar atelectasis and or infiltrate.? Right lung and pleural spaces clear ? Mediastinum:? Heart size is enlarged.? No vascular congestion present.? Mediastinal vascular clips and midline sternal wires present.? Cardiac valve prosthesis noted. ? Bones and chest wall:? No suspicious bony lesions.? Overlying soft tissues appear unremarkable.? ? IMPRESSION:? ? ? Minimal left basilar atelectasis and or infiltrate.? No pneumothorax. ? Cardiomegaly without vascular congestion ? ? Approved by: Steven Garcia M.D. on 01/27/2022 at 14:48? Discharge Plan Departure Patient Disposition: Home Clinical Impression: Acute dyspnea, CHF (congestive heart failure) Activity Restrictions/Additional Instructions: You have evidence of acute congestive heart failure which is extra fluid in your lungs. We typically treat this with a water pill for a few days and I have sent a prescription to your pharmacy. Your labs, EKGs, Chest Xray and other tests are very reassuring and as we discussed I spoke with your cardiology group about this plan. Please follow up with either your primary doctor or Dr. Zepeda, let the office know that you were seen in the Emergency Department and we would like you seen in follow up. Return for worsening condition or other concerns Prescriptions: New furosemide 40 mg tablet 40 mg PO DAILY Qty: 3 0RF No Action amoxicillin 500 mg capsule 2,000 mg PO ONCE HS PRN (Reason: Dental Procedures) 0RF Rx Instructions: prior to dental procedures anastrozole 1 mg Tablet 2 mg PO QWEEK 0RF atorvastatin 10 mg tablet 10 mg PO DAILY 0RF aspirin [Aspirin Low Dose] 81 mg Tablet,Delayed Release (Dr/Ec) 81 mg PO DAILY 0RF hydrochlorothiazide 12.5 mg tablet 12.5 mg PO DAILY 0RF testosterone cypionate 200 mg/mL Kit 100 mg IM QWEEK 0RF (DME) Respironics Dreamstation CPAP Qty: 1 0RF Dose Instruction: As directed Label Comments: Pressure: 10-18 cmH2O DME: [facility] Rx Instructions: As directed Referrals: Sachni Osman MD [Primary Care Provider] - Visit Report Forms: Patient Portal/API
[2022-01-27 20:45] LABS: Creatine Kinase 145 U/L (55-170)
[2022-01-27 20:58] LABS: Troponin I 0.057 ng/mL (0.01-0.034)
[2022-01-27 21:00] LABS: CKMB % Relative Index 2.7 % (1.5-5.0); Creatine Kinase MB 3.86 ng/mL (<2.37)
[2022-01-27] MEDS: FUROSEMIDE 40 MG TABLET PO (21:24)
== END 2022-01-27 21:26 | disposition home or self-care (01) ==
PROVIDERS: Emergency Medicine; Emergency Provider Emergency Medicine; PCP Internal Medicine; Referring Provider Internal Medicine Cardiovascular Disease
DX: R06.00 Dyspnea, unspecified (principal); I50.9 Heart failure, unspecified; Z20.822 Contact with and (suspected) exposure to COVID-19
CPT/HCPCS: 36415; 71045; 80053; 82550; 82553; 83605; 83880; 84484; 85025; 87635; 93005; 93010; 99284; C9803

== ENCOUNTER → 2022-03-05 16:04 | Outpatient (CLI) | payer OTHER, SELFPAY ==
[2022-03-05 16:38] LABS: Hematocrit 41.6 % (41-53); Hemoglobin 14.7 g/dL (13.5-17.5); Mean Corpuscular HGB Conc 35.4 % (30-36); Mean Corpuscular Hemoglobin 33.4 PG (26-34); Mean Corpuscular Volume 94.4 fL (80-100); Platelet Count 158 X10^3/uL (150-400); Red Cell Distribution Width 13.6 % (11.6-14.8); White Blood Cell Count 4.9 X10^3/uL (4.5-11.0)
[2022-03-05 16:54] LABS: HEMOLYSIS < 15 (0-50); Potassium 4.1 mmol/L (3.4-5.1)
[2022-03-05 16:55] LABS: Alanine Aminotransferase 31 IU/L (<50); Albumin 4.7 g/dL (3.5-5.0); Albumin Globulin Ratio 1.5 (1.0-2.8); Alkaline Phosphatase 61 U/L (38-126); Aspartate Aminotransferase 42 IU/L (17-59); BUN Creatinine Ratio 23.9 (6-22); Bilirubin Total 0.9 mg/dL (0.2-1.3); Blood Urea Nitrogen 22 mg/dL (9-20); Calcium 9.7 mg/dL (8.4-10.2); Carbon Dioxide 31 mmol/L (22-32); Chloride 102 mmol/L (98-107); Cholesterol 136 mg/dL (140-199); Estimated Glomerular Filt Rate > 60 mL/min (>60); Globulin 3.1 g/dL (1.7-4.1); Glucose 110 mg/dL (80-110); HDL Cholesterol 51 mg/dL (40-60); LDL Cholesterol Calculated 64 mg/dL (<100); Sodium 137 mmol/L (137-145); Total Protein 7.8 g/dL (6.3-8.2); Triglycerides 106 mg/dL (35-150)
[2022-03-05 16:56] LABS: Hemoglobin A1C% w Est Avg Glu 5.9 % (4.0-6.0)
[2022-03-05 17:04] LABS: Creatinine Urine Random 87.8 mg/dL
[2022-03-05 17:08] LABS: Microalbumi Creatinin Ratio Ur 7.9 ug/mg CR (<30); Microalbumin Urine Random 0.7 mg/dL (0-1.6)
[2022-03-05 17:27] LABS: TSH w/ Reflex to FT4 4.24 uIU/mL (0.47-4.68)
[2022-03-05 17:28] LABS: Prostate Specific Antigen 1.68 ng/mL (0.10-4.00)
[2022-03-05 17:30] LABS: Testosterone 159 ng/dL (71.8-623)
== END ==
PROVIDERS: PCP Internal Medicine; Referring Provider Internal Medicine; Visit Provider Internal Medicine
DX: E11.42 Type 2 diabetes mellitus with diabetic polyneuropathy (principal); E78.2 Mixed hyperlipidemia; I25.10 Atherosclerotic heart disease of native coronary artery without angina pectoris; I48.0 Paroxysmal atrial fibrillation; Z79.01 Long term (current) use of anticoagulants; N40.0 Benign prostatic hyperplasia without lower urinary tract symptoms
CPT/HCPCS: 36415; 80053; 80061; 82043; 82570; 83036; 84153; 84403; 84443; 85027

== ENCOUNTER → 2022-06-10 12:04 | Outpatient (CLI) | payer OTHER, SELFPAY ==
[2022-06-10 12:38] LABS: Hematocrit 47.7 % (41-53); Hemoglobin 16.5 g/dL (13.5-17.5); Mean Corpuscular HGB Conc 34.5 % (30-36); Mean Corpuscular Hemoglobin 32.1 PG (26-34); Mean Corpuscular Volume 93.2 fL (80-100); Platelet Count 137 X10^3/uL (150-400); Red Blood Cell Count 5.12 X10^6/uL (4.5-5.9); Red Cell Distribution Width 13.9 % (11.6-14.8); White Blood Cell Count 5.4 X10^3/uL (4.5-11.0)
[2022-06-10 12:45] LABS: Hemoglobin A1C% w Est Avg Glu 5.5 % (4.0-6.0)
[2022-06-10 13:40] LABS: Alanine Aminotransferase 25 IU/L (<50); Albumin 4.7 g/dL (3.5-5.0); Albumin Globulin Ratio 1.4 (1.0-2.8); Alkaline Phosphatase 57 U/L (38-126); Aspartate Aminotransferase 37 IU/L (17-59); BUN Creatinine Ratio 17.7 (6-22); Bilirubin Total 1.3 mg/dL (0.2-1.3); Blood Urea Nitrogen 20 mg/dL (9-20); Calcium 9.9 mg/dL (8.4-10.2); Carbon Dioxide 34 mmol/L (22-32); Chloride 99 mmol/L (98-107); Estimated Glomerular Filt Rate > 60 mL/min (>60); Globulin 3.4 g/dL (1.7-4.1); Glucose 106 mg/dL (80-110); HEMOLYSIS < 15 (0-50); Sodium 140 mmol/L (137-145); Total Protein 8.1 g/dL (6.3-8.2)
[2022-06-10 14:03] LABS: Prostate Specific Antigen 1.31 ng/mL (0.10-4.00)
[2022-06-10 14:06] LABS: Testosterone 926 ng/dL (71.8-623)
== END ==
PROVIDERS: PCP Internal Medicine; Referring Provider Internal Medicine; Visit Provider Internal Medicine
DX: E11.42 Type 2 diabetes mellitus with diabetic polyneuropathy (principal); I50.22 Chronic systolic (congestive) heart failure
CPT/HCPCS: 36415; 80053; 83036; 84153; 84403; 85027

== ENCOUNTER → 2022-08-19 09:08 | Outpatient (CLI) | payer OTHER, SELFPAY ==
[2022-08-19 10:15] LABS: BUN Creatinine Ratio 17.3 (6-22); Blood Urea Nitrogen 18 mg/dL (9-20); Calcium 9.3 mg/dL (8.4-10.2); Carbon Dioxide 30 mmol/L (22-32); Chloride 99 mmol/L (98-107); Cholesterol 173 mg/dL (140-199); Estimated Glomerular Filt Rate > 60 mL/min (>60); Glucose 130 mg/dL (80-110); HDL Cholesterol 55 mg/dL (40-60); LDL Cholesterol Calculated 100 mg/dL (<100); Potassium 4.2 mmol/L (3.4-5.1); Sodium 138 mmol/L (137-145); Triglycerides 92 mg/dL (35-150)
[2022-08-19 10:25] LABS: HEMOLYSIS < 15 (0-50)
[2022-08-19 11:11] LABS: Thyroid Stimulating Hormone 4.81 uIU/mL (0.47-4.68)
[2022-08-19 11:40] LABS: NT-proBNP (BNP-Adult 18+) 107 pg/mL (<450)
== END ==
PROVIDERS: PCP Internal Medicine; Referring Provider Internal Medicine Cardiovascular Disease; Visit Provider Internal Medicine Cardiovascular Disease
DX: I50.30 Unspecified diastolic (congestive) heart failure (principal); I10 Essential (primary) hypertension
CPT/HCPCS: 36415; 80048; 80061; 83735; 83880; 84443

== ENCOUNTER → 2022-10-22 10:33 | Outpatient (CLI) | payer OTHER, SELFPAY ==
[2022-10-22 12:23] LABS: BUN Creatinine Ratio 25.5 (6-22); Blood Urea Nitrogen 24 mg/dL (9-20); Calcium 8.7 mg/dL (8.4-10.2); Carbon Dioxide 27 mmol/L (22-32); Chloride 101 mmol/L (98-107); Cholesterol 162 mg/dL (140-199); Estimated Glomerular Filt Rate > 60 mL/min (>60); Glucose 117 mg/dL (80-110); HDL Cholesterol 52 mg/dL (40-60); HEMOLYSIS 29 (0-50); LDL Cholesterol Calculated 96 mg/dL (<100); Potassium 4.2 mmol/L (3.4-5.1); Sodium 137 mmol/L (137-145); Triglycerides 70 mg/dL (35-150)
== END ==
PROVIDERS: PCP Internal Medicine; Referring Provider Internal Medicine Cardiovascular Disease; Visit Provider Internal Medicine Cardiovascular Disease
DX: I10 Essential (primary) hypertension (principal); I25.10 Atherosclerotic heart disease of native coronary artery without angina pectoris; I50.30 Unspecified diastolic (congestive) heart failure
CPT/HCPCS: 36415; 80048; 80061

== ENCOUNTER → 2022-12-09 11:43 | Outpatient (CLI) | payer OTHER, SELFPAY ==
[2022-12-09 12:25] LABS: Hematocrit 49.6 % (41-53); Hemoglobin 16.9 g/dL (13.5-17.5); Mean Corpuscular Hemoglobin 30.2 PG (26-34); Platelet Count 122 X10^3/uL (150-400); Red Blood Cell Count 5.58 X10^6/uL (4.5-5.9); White Blood Cell Count 4.4 X10^3/uL (4.5-11.0)
[2022-12-09 12:59] LABS: Alanine Aminotransferase 32 IU/L (<50); Albumin 4.8 g/dL (3.5-5.0); Albumin Globulin Ratio 1.4 (1.0-2.8); Alkaline Phosphatase 51 U/L (38-126); Aspartate Aminotransferase 40 IU/L (17-59); BUN Creatinine Ratio 19.4 (6-22); Bilirubin Total 1.5 mg/dL (0.2-1.3); Blood Urea Nitrogen 21 mg/dL (9-20); Calcium 9.7 mg/dL (8.4-10.2); Carbon Dioxide 29 mmol/L (22-32); Chloride 101 mmol/L (98-107); Estimated Glomerular Filt Rate > 60 mL/min (>60); Globulin 3.5 g/dL (1.7-4.1); Glucose 112 mg/dL (80-110); HEMOLYSIS < 15 (0-50); Sodium 137 mmol/L (137-145); Total Protein 8.3 g/dL (6.3-8.2)
[2022-12-09 13:29] LABS: Prostate Specific Antigen 1.33 ng/mL (0.10-4.00)
[2022-12-09 13:31] LABS: TSH w/ Reflex to FT4 4.28 uIU/mL (0.47-4.68)
[2022-12-09 13:32] LABS: Testosterone 1450 ng/dL (71.8-623)
[2022-12-10 06:10] LABS: x Labcorp Estim. Avg Glu (eAG) 134 mg/dL (.); x Labcorp Hemoglobin A1c 6.3 % (4.8-5.6)
== END ==
PROVIDERS: PCP Internal Medicine; Referring Provider Internal Medicine; Visit Provider Internal Medicine
DX: R79.89 Other specified abnormal findings of blood chemistry (principal); E78.2 Mixed hyperlipidemia; I10 Essential (primary) hypertension; E11.42 Type 2 diabetes mellitus with diabetic polyneuropathy
CPT/HCPCS: 36415; 80053; 83036; 84153; 84403; 84443; 85027

== ENCOUNTER → 2023-03-15 15:50 | Outpatient (CLI) | payer OTHER, SELFPAY ==
[2023-03-15 17:15] LABS: Aspartate Aminotransferase 44 IU/L (17-59); BUN Creatinine Ratio 19.6 (6-22); Blood Urea Nitrogen 22 mg/dL (9-20); Calcium 9.6 mg/dL (8.4-10.2); Carbon Dioxide 28 mmol/L (22-32); Chloride 102 mmol/L (98-107); Cholesterol 139 mg/dL (140-199); Estimated Glomerular Filt Rate > 60 mL/min (>60); Glucose 113 mg/dL (80-110); HDL Cholesterol 57 mg/dL (40-60); HEMOLYSIS 32 (0-50); LDL Cholesterol Calculated 54 mg/dL (<100); Potassium 3.8 mmol/L (3.4-5.1); Sodium 139 mmol/L (137-145); Triglycerides 139 mg/dL (35-150)
[2023-03-15 17:45] LABS: TSH w/ Reflex to FT4 4.51 uIU/mL (0.47-4.68)
[2023-03-15 17:50] LABS: Testosterone 172 ng/dL (71.8-623)
[2023-03-17 02:26] LABS: Labcorp Hemoglobin (Hb) A1c 6.4 % (4.8-5.6)
== END ==
PROVIDERS: PCP Internal Medicine; Referring Provider Internal Medicine; Visit Provider Internal Medicine
DX: R79.89 Other specified abnormal findings of blood chemistry (principal); E78.2 Mixed hyperlipidemia; I25.10 Atherosclerotic heart disease of native coronary artery without angina pectoris
CPT/HCPCS: 36415; 80048; 80061; 83036; 84403; 84443; 84450

== ENCOUNTER → 2023-03-22 11:35 | Outpatient (CLI) | payer OTHER, SELFPAY ==
[2023-03-22 13:38] LABS: Microalbumin Urine Random 1.5 mg/dL (0-1.6)
[2023-03-22 13:46] LABS: Creatinine Urine Random 24.9 mg/dL; Microalbumi Creatinin Ratio Ur 60.2 ug/mg CR (<30)
== END ==
PROVIDERS: PCP Internal Medicine; Referring Provider Internal Medicine; Visit Provider Internal Medicine
DX: E11.42 Type 2 diabetes mellitus with diabetic polyneuropathy (principal); I10 Essential (primary) hypertension
CPT/HCPCS: 82043; 82570

== ENCOUNTER → 2023-08-05 16:53 | Outpatient (CLI) | payer OTHER, SELFPAY ==
[2023-08-05 17:28] LABS: Hematocrit 49.5 % (41-53); Hemoglobin 17.1 g/dL (13.5-17.5); Mean Corpuscular HGB Conc 34.6 % (30-36); Mean Corpuscular Hemoglobin 31.8 PG (26-34); Mean Corpuscular Volume 91.9 fL (80-100); Platelet Count 118 X10^3/uL (150-400); Red Blood Cell Count 5.39 X10^6/uL (4.5-5.9); Red Cell Distribution Width 15.2 % (11.6-14.8); White Blood Cell Count 4.5 X10^3/uL (4.5-11.0)
[2023-08-05 19:00] LABS: TSH w/ Reflex to FT4 4.54 uIU/mL (0.47-4.68)
[2023-08-05 19:46] LABS: Alanine Aminotransferase 31 IU/L (<50); Albumin 4.7 g/dL (3.5-5.0); Albumin Globulin Ratio 1.4 (1.0-2.8); Alkaline Phosphatase 50 U/L (38-126); Aspartate Aminotransferase 38 IU/L (17-59); BUN Creatinine Ratio 18.2 (6-22); Blood Urea Nitrogen 18 mg/dL (9-20); Calcium 10.2 mg/dL (8.4-10.2); Carbon Dioxide 27 mmol/L (22-32); Chloride 101 mmol/L (98-107); Cholesterol 176 mg/dL (140-199); Estimated Glomerular Filt Rate > 60 mL/min (>60); Globulin 3.4 g/dL (1.7-4.1); Glucose 107 mg/dL (80-110); HDL Cholesterol 57 mg/dL (40-60); HEMOLYSIS 41 (0-50); LDL Cholesterol Calculated 95 mg/dL (<100); Potassium 4.1 mmol/L (3.4-5.1); Sodium 136 mmol/L (137-145); Total Protein 8.1 g/dL (6.3-8.2); Triglycerides 118 mg/dL (35-150)
[2023-08-06 16:19] LABS: Hemoglobin A1C% w Est Avg Glu 6.4 % (4.0-6.0)
[2023-08-06 19:55] LABS: Prostate Specific Antigen 1.26 ng/mL (0.10-4.00); Testosterone 119 ng/dL (71.8-623)
== END ==
PROVIDERS: PCP Internal Medicine; Referring Provider Internal Medicine; Visit Provider Internal Medicine
DX: I48.0 Paroxysmal atrial fibrillation (principal); E78.2 Mixed hyperlipidemia; E11.42 Type 2 diabetes mellitus with diabetic polyneuropathy
CPT/HCPCS: 36415; 80053; 80061; 83036; 84153; 84403; 84443; 85027

== ENCOUNTER → 2023-10-06 11:45 | Outpatient (CLI) | payer OTHER, SELFPAY ==
[2023-10-06 14:20] LABS: Hemoglobin 16.6 g/dL (13.5-17.5); Mean Corpuscular HGB Conc 34.5 % (30-36); Mean Corpuscular Hemoglobin 31.4 PG (26-34); Mean Corpuscular Volume 91.1 fL (80-100); Platelet Count 112 X10^3/uL (150-400); Red Blood Cell Count 5.27 X10^6/uL (4.5-5.9); White Blood Cell Count 4.3 X10^3/uL (4.5-11.0)
[2023-10-06 14:39] LABS: Alanine Aminotransferase 38 IU/L (<50); Albumin 4.5 g/dL (3.5-5.0); Albumin Globulin Ratio 1.3 (1.0-2.8); Alkaline Phosphatase 51 U/L (38-126); Aspartate Aminotransferase 46 IU/L (17-59); BUN Creatinine Ratio 20.9 (6-22); Bilirubin Total 1.5 mg/dL (0.2-1.3); Blood Urea Nitrogen 23 mg/dL (9-20); Calcium 9.8 mg/dL (8.4-10.2); Carbon Dioxide 28 mmol/L (22-32); Chloride 100 mmol/L (98-107); Estimated Glomerular Filt Rate > 60 mL/min (>60); Globulin 3.4 g/dL (1.7-4.1); Glucose 93 mg/dL (80-110); HEMOLYSIS 21 (0-50); Potassium 3.9 mmol/L (3.4-5.1); Sodium 138 mmol/L (137-145); Total Protein 7.9 g/dL (6.3-8.2)
[2023-10-06 14:50] LABS: Free T4, Direct Thyroxine 0.82 ng/dL (0.78-2.19)
[2023-10-06 15:04] LABS: Thyroid Stimulating Hormone 4.67 uIU/mL (0.47-4.68)
== END ==
LOC: LAB 11:46
PROVIDERS: PCP Internal Medicine; Referring Provider Nurse Practitioner; Visit Provider Nurse Practitioner
DX: I34.0 Nonrheumatic mitral (valve) insufficiency (principal); R53.83 Other fatigue
CPT/HCPCS: 36415; 80053; 84439; 84443; 85027

== ENCOUNTER → 2023-10-07 15:21 | Outpatient (CLI) | payer OTHER, SELFPAY ==
--- NOTE | 2023-10-07 15:23 | DI.RAD.S_ITS ---
PROCEDURE: XR WRIST RT MIN 3V INDICATIONS: bilateral wrist pain TECHNIQUE: Three views of the wrist were acquired. COMPARISON: None. FINDINGS: Bones: No fractures or dislocations. No suspicious bony lesions. Soft tissues: No suspicious soft tissue calcifications. IMPRESSION: No acute bony abnormality. Dictated by: Savana Castaneda M.D. on 10/07/2023 at 17:04 Approved by: Savana Castaneda M.D. on 10/07/2023 at 17:06
--- NOTE | 2023-10-07 15:23 | DI.RAD.S_ITS ---
PROCEDURE: XR WRIST LT MIN 3V INDICATIONS: bilateral wrist pain TECHNIQUE: Three views of the wrist were acquired. COMPARISON: [facility], CR, XR WRIST RT MIN 3V, 10/07/2023, 15:27. FINDINGS: Bones: No fractures or dislocations. No suspicious bony lesions. Chronic deformity of remote ulnar styloid fracture. Mild 1st carpometacarpal osteoarthritic changes. Soft tissues: No suspicious soft tissue calcifications. IMPRESSION: Mild arthritic changes and remote ulnar styloid fracture. Dictated by: Savana Castaneda M.D. on 10/07/2023 at 17:06 Approved by: Savana Castaneda M.D. on 10/07/2023 at 17:07
== END ==
LOC: RAD 15:22
PROVIDERS: PCP Internal Medicine; Referring Provider Internal Medicine; Visit Provider Internal Medicine
DX: M25.532 Pain in left wrist (principal); M25.531 Pain in right wrist; S52.612S Displaced fracture of left ulna styloid process, sequela
CPT/HCPCS: 73110

== ENCOUNTER → 2023-12-22 07:50 | Outpatient (CLI) | payer OTHER, SELFPAY ==
--- NOTE | 2023-12-22 07:51 | DI.ECHO.S_ITS ---
[facility] : : [address] : : [place] : : [id number] : : Phone: [phone] Echocardiogram Report + + :Name: CRIS ROSADO Study Date: 12/22/2023 Height: 70 in : :Hospital ReadingLocation: Weight: 220 lb : : Gender: Male BSA: 2.2 m2 : :: 1945 Age: 78 yrs BP: 130/86 mmHg: :Reason For Study: PRESENCE OF AORTOCORONARY BYPASS GRAFT : :Ordering Physician: CATY, : :AGUEDA Ness Performed By: Philomena Bonner : :Referring: AGUEDA BYRNE : + + Interpretation Summary The left ventricle is normal in size. There is severe concentric left ventricular hypertrophy. The ejection fraction is estimated to be 45-50%. Diastolic parameters suggest probable elevated filling pressures. No significant change from the previous study. The right ventricle is mildly dilated. Right ventricular systolic function is mildly reduced. There is a pacemaker lead in the right ventricle. There is a mild to moderate mitral annulus calcification with calcification of both anterior and posterior mitral leaflets and restriction of both the mitral leaflets as well. Cannot rule out mitral valve repair. The mean gradient across mitral valve about 5.8 mmHg. Morphologically, mild to moderate mitral stenosis. Not critical. There is moderate to severe mitral regurgitation. Previously moderate MR. There is a bioprosthetic aortic valve. There is mild perivalvular regurgitation around the prosthetic aortic valve. The peak aortic velocity is 2.6 m/sec. In March 2020, peak aortic velocity 2.9 m/s. In March 31, 2021, it was 1.92 m/s. The IVC is of normal diameter and collapses greater than 50% with a sniff. This suggests a low right atrial pressure of 3 mm Hg. The ascending aorta is mildly enlarged. 4.0 cm in diameter. No significant change. Procedure: A two-dimensional transthoracic echocardiogram with color flow and Doppler was performed. The study quality was technically adequate. Comparison is made with the echocardiogram of 12/05/2021. The patient has a paced rhythm. The heart rate ranged between 70 bpm during the study. Left Ventricle: The left ventricle is normal in size. There is severe concentric left ventricular hypertrophy. There is no thrombus. The ejection fraction is estimated to be 45-50%. Septal motion is consistent with conduction abnormality. There is septal wall hypokinesis. MV E/A: 0.86 Med Peak E' Jose: 5.2 cm/sec E/E' med: 28.7. Diastolic parameters suggest probable elevated filling pressures. Right Ventricle: The right ventricle is mildly dilated. There is a pacemaker lead in the right ventricle. Right ventricular systolic function is mildly reduced. Atria: The left atrium is moderately dilated. There has been no significant change since the previous study. There is a catheter/pacemaker lead seen in the right atrium. There is no Doppler evidence for an interatrial shunt. Mitral Valve: There is a mild to moderate mitral annulus calcification with calcification of both anterior and posterior mitral leaflets and restriction of both the mitral leaflets as well. Cannot rule out mitral valve repair. The mean gradient across mitral valve about 5.8 mmHg. Morphologically, mild to moderate mitral stenosis. Not critical. The mitral valve mean gradient is 5.8 mmHg. There is moderate to severe mitral regurgitation. Aortic Valve: There is a bioprosthetic aortic valve. There is mild perivalvular regurgitation around the prosthetic aortic valve. The peak aortic velocity is 2.6 m/sec. The aortic valve mean gradient is 18 mmHg. In March 2020, peak aortic velocity 2.9 m/s. In March 31, 2021, it was 1.92 m/s. Tricuspid Valve: The tricuspid valve is not well visualized. There is mild tricuspid regurgitation. Pulmonary artery pressures cannot be estimated because of the lack of a measurable TR jet velocity. Pulmonic Valve: The pulmonic valve is not well seen, but is grossly normal. There is moderate pulmonic regurgitation. Great Vessels: The ascending aorta is mildly enlarged. The aortic arch could not be visualized. The IVC is of normal diameter and collapses greater than 50% with a sniff. This suggests a low right atrial pressure of 3 mm Hg. Pericardium/ Pleura There is no pericardial effusion. There is no pleural effusion. MMode/2D Measurements & Calculations LVIDd: 4.7 cm asc Aorta Diam: 4.0 cm LVIDs: 3.4 cm Ao Arch Diam (Prox Trans): 3.9 cm FS: 27.7 % EPSS: 1.6 cm IVSd: 1.7 cm LVPWd: 1.6 cm LV cox. diameter/BSA (cm/m^2): 2.2 LV sys. diameter/BSA (cm/m^2): 1.6 LA A2 area: 26.5 cm2 RA long axis: 5.4 cm LA A4 area: 23.3 cm2 RA area: 20.1 cm2 LA length (vol): 5.9 cm RA vol: 63.3 ml LA vol: 88.2 ml RA : 29.1 ml/m2 LA vol index: 40.6 ml/m2 IVC diam: 1.6 cm RVD1 (basal): 4.6 cm RVD2 (mid): 3.9 cm TAPSE: 1.4 cm Doppler Measurements & Calculations Ao V2 max: 261.2 cm/sec LVOT Max Jose: 99.8 cm/sec Ao V2 mean: 196.4 cm/sec LV V1 max P.0 mmHg Ao max P.0 mmHg LV V1 VTI: 19.0 cm Ao mean P.0 mmHg sev ratio: 0.37 Ao V2 VTI: 50.9 cm AI P1/2t: 707.0 msec AI dec slope: 156.0 cm/sec2 MV E max jose: 149.8 cm/sec PA V2 max: 139.9 cm/sec MV A max jose: 173.5 cm/sec PA V2 mean: 90.3 cm/sec MV E/A: 0.86 PA mean P.7 mmHg Med Peak E' Jose: 5.2 cm/sec PA pr(Accel): 20.8 mmHg E/E' med: 28.7 Lat Peak E' Jose: 6.0 cm/sec E/E' lat: 25.1 E/e' average: 26.9 MV dec time: 0.32 sec MR ERO: 0.24 cm2 MV V2 mean: 109.3 cm/sec MR PISA: 3.7 cm2 MV mean P.8 mmHg MR flow rate: 142.8 cm3/sec MV V2 VTI: 49.2 cm MR PISA radius: 0.77 cm Reading Physician:05:12 PM
--- NOTE | 2023-12-22 07:52 | DI.US.S_ITS ---
PROCEDURE: US CAROTID DOPPLER BI INDICATIONS: Presence of aortocoronary bypass graft TECHNIQUE: Color and pulse Doppler interrogation was performed of both carotid systems, with image documentation and velocity measurements. COMPARISON: None. FINDINGS: Stenosis calculations are based on SRU (Society of Radiologists in Ultrasound) criteria. The flow velocities and the arterial waveforms are normal within both carotid arterial systems. Atherosclerotic plaque is seen on both sides. The estimated degree of internal carotid artery stenosis is less than 50%. Antegrade flow is confirmed within both vertebral arteries. IMPRESSION: No hemodynamically significant stenosis is seen. Similar to prior. Atherosclerotic plaque is noted bilaterally. Dictated by: Camilo Davila M.D. on 12/22/2023 at 10:17 Approved by: Camilo Davila M.D. on 12/22/2023 at 10:18
--- NOTE | 2023-12-22 07:52 | DI.NM.S_ITS ---
PROCEDURE: NM MARCOS PERF SPECT R&S PHARM Rest and pharmacological stress myocardial perfusion SPECT with gated imaging and ejection fraction RADIOPHARMACEUTICAL: 12.5 mCi Tc-99m tetrafosmin IV at rest and 25.5 mCi Tc-99m tetrafosmin IV at peak effect of pharmacological stress. A [id number] was performed. INDICATIONS: Presence of aortocoronary bypass graft TECHNIQUE: Radiopharmaceutical was injected at peak stress test, and also at rest. SPECT images were obtained. SPECT myocardial perfusion images were displayed in short axis, horizontal long axis, and vertical long axis views. Gated images were reviewed using Graphdive software. COMPARISON: None. CARDIAC STRESS: A pharmacologic stress test was performed under the supervision of an attending staff, using an infusion of regadenoson 0.4 mg IV. Hemodynamic data: There is normal blood pressure and heart rate response to pharmacologic stress. Symptoms: The patient denied anginal chest pain. EKG: No diagnostic changes of ischemia; no ectopy. FINDINGS: Raw data: There is good myocardial uptake of radiotracer. No significant motion artifacts. Jyax-[id number] ratio is 0.19 (normal is less than 0.38 for tetrafosmin tracer). Left ventricle function: Gated images demonstrate significant dyssynchrony. No segmental wall motion abnormalities. No transient ischemic dilation; TID is 1.08 (normal less than 1.3). Left ventricle resting end diastolic volume could not be calculated. Left ventricle stress ejection fraction is 54%; normal range is above 45%. Myocardial perfusion: There is normal distribution of activity in the right and left ventricular myocardium. No fixed or reversible perfusion defects. IMPRESSION: Low risk study. No evidence of pharmacologic induced ischemia or scar. Normal LVEF with significant dyssynchronous contraction pattern. Dictated by: Lolita Fry D.O. on 12/22/2023 at 16:33 Approved by: Lolita Fry D.O. on 12/22/2023 at 16:35
== END ==
PROVIDERS: PCP Internal Medicine; Referring Provider Nurse Practitioner; Visit Provider Nurse Practitioner
DX: R09.89 Other specified symptoms and signs involving the circulatory and respiratory systems (principal); Z95.1 Presence of aortocoronary bypass graft; R53.83 Other fatigue; I65.23 Occlusion and stenosis of bilateral carotid arteries; I51.7 Cardiomegaly; Z95.0 Presence of cardiac pacemaker; I34.0 Nonrheumatic mitral (valve) insufficiency; Z95.2 Presence of prosthetic heart valve; I35.1 Nonrheumatic aortic (valve) insufficiency; I34.81 Nonrheumatic mitral (valve) annulus calcification
CPT/HCPCS: 78452; 93017; 93306; 93880; A9502; J2785

== ENCOUNTER → 2023-12-29 09:16 | Outpatient (CLI) | payer OTHER, SELFPAY ==
[2023-12-29 10:23] LABS: Cholesterol 128 mg/dL (140-199); HDL Cholesterol 52 mg/dL (40-60); LDL Cholesterol Calculated 58 mg/dL (<100); Triglycerides 88 mg/dL (35-150)
== END ==
PROVIDERS: PCP Internal Medicine; Referring Provider Nurse Practitioner; Visit Provider Nurse Practitioner
DX: E78.5 Hyperlipidemia, unspecified (principal)
CPT/HCPCS: 36415; 80061

== ENCOUNTER → 2024-01-13 10:34 | Outpatient (CLI) | payer OTHER, SELFPAY ==
[2024-01-13 11:17] LABS: Hemoglobin A1C% w Est Avg Glu 6.9 % (4.0-6.0)
[2024-01-13 11:46] LABS: Alanine Aminotransferase 31 IU/L (<50); Albumin 4.4 g/dL (3.5-5.0); Albumin Globulin Ratio 1.8 (1.0-2.8); Alkaline Phosphatase 48 U/L (38-126); Aspartate Aminotransferase 40 IU/L (17-59); BUN Creatinine Ratio 16.4 (6-22); Bilirubin Total 1.4 mg/dL (0.2-1.3); Blood Urea Nitrogen 19 mg/dL (9-20); Calcium 9.4 mg/dL (8.4-10.2); Carbon Dioxide 29 mmol/L (22-32); Chloride 104 mmol/L (98-107); Estimated Glomerular Filt Rate > 60 mL/min (>60); Globulin 2.4 g/dL (1.7-4.1); Glucose 188 mg/dL (80-110); HEMOLYSIS < 15 (0-50); Potassium 4.4 mmol/L (3.4-5.1); Sodium 137 mmol/L (137-145); Total Protein 6.8 g/dL (6.3-8.2)
[2024-01-13 12:11] LABS: Testosterone 1380 ng/dL (71.8-623)
== END ==
PROVIDERS: PCP Internal Medicine; Referring Provider Internal Medicine; Visit Provider Internal Medicine
DX: E11.42 Type 2 diabetes mellitus with diabetic polyneuropathy (principal); R79.89 Other specified abnormal findings of blood chemistry
CPT/HCPCS: 36415; 80053; 83036; 84403

== ENCOUNTER → 2024-04-14 10:50 | Outpatient (CLI) | payer OTHER, SELFPAY ==
[2024-04-14 11:27] LABS: Add Manual Diff / Slide Review NO; Basophils Absolute Auto 0 /uL (0-100); Eosinophils Absolute Auto 100 /uL (0-450); Eosinophils Percent Auto 3.4 % (2-4); Hematocrit 49.5 % (41-53); Lymphocytes Absolute Auto 1400 /uL (1100-4500); Lymphocytes Percent Auto 34.3 % (25-40); Mean Corpuscular HGB Conc 34.4 % (30-36); Mean Corpuscular Hemoglobin 32.2 PG (26-34); Mean Corpuscular Volume 93.4 fL (80-100); Monocytes Absolute Auto 500 /uL (0-900); Monocytes Percent Auto 13.2 % (3-14); Neutrophils Absolute Auto 2000 /uL (1500-7000); Neutrophils Percent Auto 48.1 % (50-75); Platelet Count 114 X10^3/uL (150-400); Red Cell Distribution Width 15.8 % (11.6-14.8); White Blood Cell Count 4.1 X10^3/uL (4.5-11.0)
[2024-04-14 11:39] LABS: Alanine Aminotransferase 31 IU/L (<50); Albumin 4.6 g/dL (3.5-5.0); Albumin Globulin Ratio 1.8 (1.0-2.8); Alkaline Phosphatase 58 U/L (38-126); Aspartate Aminotransferase 40 IU/L (17-59); BUN Creatinine Ratio 16.4 (6-22); Bilirubin Total 1.3 mg/dL (0.2-1.3); Blood Urea Nitrogen 19 mg/dL (9-20); Calcium 10.1 mg/dL (8.4-10.2); Carbon Dioxide 29 mmol/L (22-32); Chloride 98 mmol/L (98-107); Estimated Glomerular Filt Rate > 60 mL/min (>60); Globulin 2.6 g/dL (1.7-4.1); Glucose 111 mg/dL (80-110); HEMOLYSIS < 15 (0-50); Potassium 4.2 mmol/L (3.4-5.1); Sodium 136 mmol/L (137-145); Total Protein 7.2 g/dL (6.3-8.2)
== END ==
PROVIDERS: PCP Internal Medicine; Referring Provider Internal Medicine Cardiovascular Disease; Visit Provider Internal Medicine Cardiovascular Disease
DX: Z95.0 Presence of cardiac pacemaker (principal)
CPT/HCPCS: 36415; 80053; 85025

== ENCOUNTER → 2024-08-29 10:23 | Outpatient (CLI) | payer OTHER, SELFPAY ==
[2024-08-29 11:46] LABS: Cholesterol 103 mg/dL (140-199); HDL Cholesterol 44 mg/dL (40-60); LDL Cholesterol Calculated 36 mg/dL (<100); Triglycerides 117 mg/dL (35-150)
== END ==
LOC: LAB 10:24
PROVIDERS: PCP Internal Medicine; Referring Provider Internal Medicine Cardiovascular Disease; Visit Provider Internal Medicine Cardiovascular Disease
DX: I10 Essential (primary) hypertension (principal); I25.10 Atherosclerotic heart disease of native coronary artery without angina pectoris
CPT/HCPCS: 36415; 80061

== ENCOUNTER → 2024-08-31 10:51 | Outpatient (CLI) | payer OTHER, SELFPAY ==
[2024-08-31 11:13] LABS: Hematocrit 52.7 % (41-53); Mean Corpuscular HGB Conc 34.1 % (30-36); Mean Corpuscular Hemoglobin 32.4 PG (26-34); Mean Corpuscular Volume 95.1 fL (80-100); Platelet Count 147 X10^3/uL (150-400); Red Blood Cell Count 5.55 X10^6/uL (4.5-5.9); Red Cell Distribution Width 15.4 % (11.6-14.8); White Blood Cell Count 4.9 X10^3/uL (4.5-11.0)
[2024-08-31 11:25] LABS: Hemoglobin A1C% w Est Avg Glu 6.2 % (4.0-6.0)
[2024-08-31 11:40] LABS: Aspartate Aminotransferase 44 IU/L (17-59); BUN Creatinine Ratio 12.7 (6-22); Blood Urea Nitrogen 16 mg/dL (9-20); Calcium 10.2 mg/dL (8.4-10.2); Carbon Dioxide 29 mmol/L (22-32); Chloride 100 mmol/L (98-107); Estimated Glomerular Filt Rate 57 mL/min (>60); Glucose 108 mg/dL (80-110); HEMOLYSIS < 15 (0-50); Potassium 4.4 mmol/L (3.4-5.1); Sodium 138 mmol/L (137-145)
[2024-08-31 12:08] LABS: Prostate Specific Antigen 1.74 ng/mL (0.10-4.00)
[2024-08-31 12:11] LABS: Testosterone 1060 ng/dL (71.8-623)
[2024-08-31 14:46] LABS: Microalbumin Urine Random 2.1 mg/dL (0-1.6)
[2024-08-31 14:48] LABS: Creatinine Urine Random 111.92 mg/dL
== END ==
PROVIDERS: PCP Internal Medicine; Referring Provider Internal Medicine; Visit Provider Internal Medicine
DX: E78.2 Mixed hyperlipidemia (principal); E11.42 Type 2 diabetes mellitus with diabetic polyneuropathy
CPT/HCPCS: 36415; 80048; 82043; 82570; 83036; 84153; 84403; 84450; 85027

== ENCOUNTER → 2024-11-10 15:15 | Outpatient (CLI) | payer OTHER, SELFPAY ==
[2024-11-10 16:17] LABS: BUN Creatinine Ratio 16.9 (6-22); Blood Urea Nitrogen 22 mg/dL (9-20); Calcium 10.7 mg/dL (8.4-10.2); Carbon Dioxide 31 mmol/L (22-32); Chloride 99 mmol/L (98-107); Estimated Glomerular Filt Rate 55 mL/min (>60); Glucose 135 mg/dL (80-110); Sodium 137 mmol/L (137-145)
[2024-11-10 16:19] LABS: HEMOLYSIS 59 (0-50); Potassium 4.6 mmol/L (3.4-5.1)
== END ==
LOC: LAB 15:16
PROVIDERS: PCP Internal Medicine; Referring Provider Internal Medicine Cardiovascular Disease; Visit Provider Internal Medicine Cardiovascular Disease
DX: I50.22 Chronic systolic (congestive) heart failure (principal)
CPT/HCPCS: 36415; 80048

== ENCOUNTER → 2024-12-20 12:50 | Outpatient (CLI) | payer OTHER, SELFPAY ==
[2024-12-20 15:17] LABS: Folate 11.9 ng/mL (2.76-20.0); Vitamin B12 472 pg/mL (239-931)
== END ==
PROVIDERS: PCP Internal Medicine; Referring Provider Nurse Practitioner; Visit Provider Nurse Practitioner
DX: E53.8 Deficiency of other specified B group vitamins (principal)
CPT/HCPCS: 36415; 82607; 82746

== ENCOUNTER → 2025-01-30 11:03 | Outpatient (CLI) | payer OTHER, SELFPAY ==
[2025-01-30 11:54] LABS: Add Manual Diff / Slide Review NO; Basophils Absolute Auto 0 /uL (0-100); Basophils Percent Auto 0.9 % (0-2); Eosinophils Absolute Auto 100 /uL (0-450); Eosinophils Percent Auto 3.6 % (2-4); Hematocrit 48.1 % (41-53); Hemoglobin 16.5 g/dL (13.5-17.5); Lymphocytes Absolute Auto 1000 /uL (1100-4500); Lymphocytes Percent Auto 28.8 % (25-40); Mean Corpuscular HGB Conc 34.3 % (30-36); Mean Corpuscular Hemoglobin 31.8 PG (26-34); Mean Corpuscular Volume 92.6 fL (80-100); Monocytes Absolute Auto 500 /uL (0-900); Monocytes Percent Auto 15.7 % (3-14); Neutrophils Absolute Auto 1800 /uL (1500-7000); Platelet Count 108 X10^3/uL (150-400); Red Blood Cell Count 5.19 X10^6/uL (4.5-5.9); Red Cell Distribution Width 16.9 % (11.6-14.8); White Blood Cell Count 3.5 X10^3/uL (4.5-11.0)
[2025-01-30 12:42] LABS: BUN Creatinine Ratio 17.1 (6-22); Blood Urea Nitrogen 20 mg/dL (9-20); Calcium 10.1 mg/dL (8.4-10.2); Carbon Dioxide 29 mmol/L (22-32); Chloride 102 mmol/L (98-107); Estimated Glomerular Filt Rate > 60 mL/min (>60); Glucose 116 mg/dL (70-99); HEMOLYSIS < 15 (0-50); Potassium 4.7 mmol/L (3.4-5.1); Sodium 137 mmol/L (137-145)
[2025-01-30 13:10] LABS: TSH w/ Reflex to FT4 3.76 uIU/mL (0.47-4.68)
== END ==
PROVIDERS: PCP Internal Medicine; Referring Provider Nurse Practitioner Acute Care; Visit Provider Nurse Practitioner Acute Care
DX: I50.22 Chronic systolic (congestive) heart failure (principal); R53.83 Other fatigue; Z87.898 Personal history of other specified conditions
CPT/HCPCS: 36415; 80048; 83036; 84443; 85025

== ENCOUNTER 2025-03-26 16:20 | Emergency (ER) | payer OTHER, SELFPAY ==
[2025-03-26] VITALS (20 sets, daily range): BP systolic 106–171; BP diastolic 61–95; PULSE 68–74; RESP 2–22; TEMP 36.6; O2SAT 91–99; BMI 31.5
--- NOTE | 2025-03-26 16:43 | DI.RAD.S_ITS ---
PROCEDURE: XR CHEST 1V INDICATIONS: Possible stroke TECHNIQUE: One view of the chest was acquired. COMPARISON: [facility], CR, XR CHEST 2 VIEWS, 12/16/2022, 13:30. [facility], CR, XR CHEST 1V, 01/27/2022, 15:04. FINDINGS: Surgical changes and devices: Cardiac pacemaker is seen with pulse generator in the left chest. Sternotomy wires, mediastinal clips, and prosthetic heart valve are present. Lungs and pleura: Mildly low lung volumes bilaterally with mild bibasilar atelectasis. No pleural effusions or pneumothorax. Mediastinum: Cardiac silhouette is enlarged. Bones and chest wall: Chronic deformity of the right 4th rib may be related to prior surgery. No suspicious bony lesions. Overlying soft tissues appear unremarkable. IMPRESSION: Mildly low lung volumes bilaterally with bibasilar atelectasis. Cardiomegaly. Approved by: Melvin Tran M.D. on 03/26/2025 at 17:16
--- NOTE | 2025-03-26 16:43 | DI.CT.S_ITS ---
PROCEDURE: CT ANGIO HEAD AND NECK INDICATIONS: sudden onset dizz TECHNIQUE: After the administration of intravenous contrast, 1 mm thick sections acquired from the aortic arch through the [place] of [place]. 3-dimensional ecftson-bcngtgejw-hrbrzgkgot (MIP) and/or volume rendering reformats were acquired of the central intracranial vasculature and neck separately. For radiation dose reduction, the following was used: automated exposure control, adjustment of mA and/or kV according to patient size. COMPARISON: None. FINDINGS: Image quality: Diagnostic. Cerebral CT Angiogram: Internal carotid arteries: There is no occlusion. There is also atherosclerotic disease with mild stenosis in the cavernous ICA bilaterally. Anterior cerebral arteries: Unremarkable. No significant stenosis. No occlusion. No aneurysm. Middle cerebral arteries: Unremarkable. No significant stenosis. No occlusion. No aneurysm. Posterior cerebral arteries: Unremarkable. No significant stenosis. No occlusion. No aneurysm. Basilar artery: Unremarkable. No significant stenosis. No occlusion. No aneurysm. Vertebral arteries: No occlusion Dural venous sinuses: Unremarkable given phase of enhancement. Other: Arterial phase appearance of the brain parenchyma is unremarkable. Neck CT Angiogram: Internal carotid arteries: Atherosclerotic plaque with moderate stenosis in the proximal portion of the right ICA. Common carotid arteries: Unremarkable. No significant stenosis. No dissection or occlusion. External carotid arteries: Unremarkable. No occlusion. Vertebral arteries: There is a dominant left vertebral artery. Atherosclerotic disease with mild stenosis at the left vertebral artery origin. There is also mild to moderate multifocal stenosis in the right vertebral especially proximally. Aortic Arch and Mediastinum: There is enlargement of the distal ascending aorta measuring 4.9 cm. . Other: Arterial phase soft tissues of the neck and chest are unremarkable. IMPRESSION: 1. No signs of intracranial large vessel occlusion. 2. 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 3. There is ascending aortic aneurysm measuring at least 4.9 cm. This can be further assessed with chest CTA. Any quantitative measurements of stenosis were performed using NASCET criteria. Impression communicated with Dr. Diamond at 5:12 p.m.. Dictated by: Nguyễn Marcum M.D. on 03/26/2025 at 17:05 Approved by: Nguyễn Marcum M.D. on 03/26/2025 at 17:21
--- NOTE | 2025-03-26 16:43 | DI.CT.S_ITS ---
PROCEDURE: CT STROKE INDICATIONS: Positive BE-FAST, Stroke symptoms TECHNIQUE: Noncontrast 4.5 mm thick angled axial sections acquired from the foramen magnum to the vertex, with coronal reformats. For radiation dose reduction, the following was used: automated exposure control, adjustment of mA and/or kV according to patient size. COMPARISON: None. FINDINGS: Image quality: Diagnostic. CSF spaces: Basal cisterns are patent. No extra-axial fluid collections. Ventricles are normal in size and shape. Brain: No midline shift. No intracranial mass effect or hemorrhage. [place]- white matter interface is normal. Skull and face: Calvarium and visualized facial bones are intact, without suspicious lesions. Sinuses: Visualized sinuses and mastoids are clear. IMPRESSION: No acute intracranial pathology. This study fulfills neurological imaging criteria for inclusion or exclusion of acute stroke therapies based on available published neurological imaging guidelines. Dictated by: Nguyễn Marcum M.D. on 03/26/2025 at 17:00 Approved by: Nguyễn Marcum M.D. on 03/26/2025 at 17:05
--- NOTE | 2025-03-26 17:01 | EKG_ITS ---
[address] [address] Test Date: 2025-03-26 Pat Name: Ramo Pickering Department: [facility] Room: Gender: Male [employer]pper: A[birth year] : 1945 Requested By: Order Number: [id number] Reading MD: Lexx Snyder Measurements Intervals [place] Rate: 70 P: 116 WY: 154 QRS: -53 QRSD: 184 T: -19 QT: 446 QTc: 481 Interpretive Statements AV dual-paced rhythm Biventricular pacemaker detected Electronically Signed On 03-31-2025 7:47:23 PDT by Lexx Snyder
[2025-03-26 17:02] LABS: Add Manual Diff / Slide Review NO; Hematocrit 50.4 % (41-53); Hemoglobin 17.0 g/dL (13.5-17.5); Lymphocytes Absolute Auto 900 /uL (1100-4500); Mean Corpuscular HGB Conc 33.7 % (30-36); Mean Corpuscular Hemoglobin 31.2 PG (26-34); Mean Corpuscular Volume 92.5 fL (80-100); Platelet Count 101 X10^3/uL (150-400)
[2025-03-26 17:07] LABS: INR 1.5 (0.9-1.3); Prothrombin Time 16.5 SECONDS (9.4-12.5)
[2025-03-26 17:10] LABS: PTT Partial Thromboplastin Tim 29 SECONDS (25.1-36.5)
[2025-03-26 17:13] LABS: Alanine Aminotransferase 24 IU/L (<50); Albumin 4.6 g/dL (3.5-5.0); Albumin Globulin Ratio 1.6 (1.0-2.8); Alkaline Phosphatase 50 U/L (38-126); Blood Urea Nitrogen 19 mg/dL (9-20); Calcium 10.3 mg/dL (8.4-10.2); Carbon Dioxide 24 mmol/L (22-32); Chloride 102 mmol/L (98-107); Creatine Kinase 160 U/L (55-170); Estimated Glomerular Filt Rate 53 mL/min (>60); Globulin 2.8 g/dL (1.7-4.1); Glucose 140 mg/dL (70-99); HEMOLYSIS 18 (0-50); Potassium 3.5 mmol/L (3.4-5.1); Sodium 136 mmol/L (137-145); Total Protein 7.4 g/dL (6.3-8.2)
--- NOTE | 2025-03-26 17:14 | ED.DIZZY ---
HPI - Dizziness <Immanuel Diamond, DO - Last Filed: 03/27/25 08:14> General Chief Complaint: Dizziness Stated Complaint: fatigue, weakness, vertigo x 3 hrs Time Seen by Provider: 03/26/25 16:24 Source: EMS Mode of arrival: EMS History of Present Illness HPI Narrative: 79-year-old gentleman history of heart failure with reduced ejection fraction 40-45%, paroxysmal atrial flutter on Eliquis, dyslipidemia CAD, CABG valve replacement bovine presents with fatigue and generalized weakness today after waking up from sleep. He reports weakness at 1:30 p.m. today both legs and both arms but denies any headache, dizziness, nausea, vomiting, diarrhea, chest pain, shortness of breath, cough, sore throat. Other than what is stated 14 point review of system is negative. Related Data Home Medications ?Medication ?Instructions ?Recorded ?Confirmed Respironics Dreamstation CPAP #1 ea 12/22/18 04/20/24 apixaban 5 mg tablet (Eliquis) 5 mg PO BID 03/05/22 03/07/25 furosemide 20 mg tablet 20 mg PO DAILY 03/05/22 03/07/25 zinc 50 mg tablet 50 mg PO DAILY 03/05/22 03/07/25 amoxicillin 500 mg capsule 2,000 mg PO .prn PRN Dental 09/10/22 03/07/25 Procedures aspirin 81 mg tablet,delayed 81 mg PO DAILY 09/10/22 03/07/25 release rosuvastatin 40 mg tablet 40 mg PO DAILY 09/10/22 03/07/25 valsartan 40 mg tablet 40 mg PO DAILY 09/10/22 03/07/25 ezetimibe 10 mg tablet 10 mg PO DAILY 10/13/23 03/07/25 cholecalciferol (vitamin D3) 125 125 mcg PO DAILY 08/31/24 03/07/25 mcg (5,000 unit) capsule metoprolol succinate 25 mg 12.5 mg PO DAILY 08/31/24 03/07/25 tablet,extended release 24 hr Previous Rx's ?Medication ?Instructions ?Recorded sildenafil (pulm.hypertension) 20 20 mg PO DAILY PRN sexual activity 07/24/24 mg tablet #30 tabs tirzepatide 2.5 mg/0.5 mL 2.5 mg (0.5 mL) SUBCUT QWEEK #2 mL 03/07/25 subcutaneous pen injector (Mounjaro) tirzepatide 5 mg/0.5 mL 5 mg (0.5 mL) SUBCUT QWEEK #2 mL 03/07/25 subcutaneous pen injector (Mounjaro) testosterone cypionate 200 mg/mL 60 mg (0.3 mL) IM QWEEK #4 ea 03/20/25 intramuscular kit Allergies Allergy/AdvReac Type Severity Reaction Status Date / Time Sulfa (Sulfonamide Allergy Unknown as a Verified 03/26/25 16:34 Antibiotics) child, doesn't remember Review of Systems <Immanuel Diamond DO - Last Filed: 03/27/25 08:14> Review of Systems ROS Unobtainable: All systems reviewed & are unremarkable except as noted in HPI and below Patient History <Immanuel Diamond DO - Last Filed: 03/27/25 08:14> Medical History Aortic stenosis Aortic valve disease Bicuspid aortic valve Bundle branch block, bilateral Chicken pox (~1949) Chronic anticoagulation Chronic low back pain Coronary artery disease (~2009) De Quervain's tenosynovitis, bilateral Elevated TSH Erectile dysfunction Essential hypertension Hypogonadism 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 Mitral stenosis Mixed hyperlipidemia Mumps (~1954) Nonrheumatic mitral valve regurgitation Obesity (BMI 30.0-34.9) Obstructive sleep apnea of adult Paroxysmal atrial fibrillation Polyneuropathy, unspecified Right shoulder tendonitis Systolic CHF, 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 Venous (peripheral) insufficiency Surgical History Anesthesia History of tonsillectomy (~1949) History of uvulopalatopharyngoplasty (~11/1989) S/P AVR (aortic valve replacement) (~09/1990) 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) Family History Father Diabetes mellitus History of heart disease Hyperlipidemia Hypertension Social History marital status: details: (Donna with dementia), 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 Well-developed patient, in mild distress. HEAD: Atraumatic. Normocephalic. EYES: Pupils equal round and reactive. Extraocular motions intact. No scleral icterus. No injection or drainage. ENT: Nose without bleeding, purulent drainage. Throat without erythema, tonsillar hypertrophy or exudate. Airway patent. NECK: Trachea midline. Non tender CARDIOVASCULAR: Regular rate and rhythm without murmurs, gallops, or rubs. RESPIRATORY: Clear to auscultation. Breath sounds equal bilaterally. No wheezes, rales, or rhonchi. GASTROINTESTINAL: Abdomen soft, non-tender, nondistended. EXTREMITIES: No edema or joint tenderness. BACK: Nontender without deformity or crepitance. No flank tenderness. NEURO: AOx3. GCS 15 nonfocal neuro exam negative pronator drift ifzzmc-ad-zwon opposite vukw-lp-bwfk intact 5/5 upper and lower extremity SKIN: No rash or erythema of visible areas Initial Vital Signs Initial Vital Signs: Vital Signs Temperature 97.9 F 03/26/25 16:34 Pulse Rate 70 03/26/25 16:34 Respiratory Rate 18 03/26/25 16:34 Blood Pressure 115/69 03/26/25 16:34 Pulse Oximetry 99 03/26/25 16:34 Oxygen Delivery Method Room Air 03/26/25 16:34 <Levy Patel MD - Last Filed: 03/27/25 04:51> Initial Vital Signs Initial Vital Signs: Vital Signs Temperature 97.9 F 03/26/25 16:34 Pulse Rate 70 03/26/25 16:34 Respiratory Rate 18 03/26/25 16:34 Blood Pressure 115/69 03/26/25 16:34 Pulse Oximetry 99 03/26/25 16:34 Oxygen Delivery Method Room Air 03/26/25 16:34 Scores <Immanuel Diamond DO - Last Filed: 03/27/25 08:14> NIH Stroke Scale Level of Conciousness: Alert, keenly responsive Ask month/age: Answers both questions correctly. Open/close eyes, close hand: Performs both tasks correctly Best gaze horizontal: Normal Visual schilling: No visual loss Facial palsy: Normal symetrical movement Left arm drift: No drift for full 10 sec Right arm drift: No drift for full 10 sec Left leg drift: No drift for full 5 sec Right leg drift: No drift for full 5 sec Limb ataxia: Absent Sensory on face/arms/legs: Normal, no sensory loss Best language: No aphasia, normal Dysarthria: Normal Extinction or inattention: No abnormality Total NIH Stroke scale score: 0 <Levy Patel MD - Last Filed: 03/27/25 04:51> NIH Stroke Scale Total NIH Stroke scale score: 0 Course <Immanuel Diamond DO - Last Filed: 03/27/25 08:14> Orders Ordered: ED Orders 03/27/25 01:10 Troponin I Stat Discontinued Medications Lactated Ringer's (Lactated Ringers) 1,000 mls @ 1,000 mls/hr IV BOLUS ONE Stop: 03/26/25 18:26 Last Infusion: 03/26/25 19:08 Dose: Infused Documented By: Admin: 03/26/25 17:47 Dose: 1,000 mls/hr Documented By: ELEUTERIO Sodium Chloride (Normal Saline 0.9%) 1,000 mls @ 1,000 mls/hr IV BOLUS ONE Stop: 03/26/25 22:32 Last Infusion: 03/26/25 23:00 Dose: Infused Documented By: Admin: 03/26/25 21:36 Dose: 1,000 mls/hr Documented By: RACHAEL Ondansetron HCl (Ondansetron 4 Mg/2 Ml Inj) 4 mg IV NOW PRN PRN Reason: Nausea And Vomiting Ondansetron HCl (Ondansetron 4 Mg Odt) 4 mg PO NOW PRN PRN Reason: Nausea And Vomiting Vital Signs Vital signs: Vital Signs - 8 hr 03/27/25 00:33 03/27/25 00:34 03/27/25 00:34 Pulse Rate 74 73 Respiratory Rate 20 1 L Blood Pressure 136/78 Pulse Oximetry 97 Oxygen Delivery Method Room Air 03/27/25 01:00 03/27/25 01:00 03/27/25 01:30 Pulse Rate 69 Respiratory Rate 18 Blood Pressure 118/71 125/79 Pulse Oximetry 95 Oxygen Delivery Method 03/27/25 01:30 03/27/25 02:00 03/27/25 02:00 Pulse Rate 69 69 Respiratory Rate 13 21 Blood Pressure 140/79 Pulse Oximetry 96 96 Oxygen Delivery Method Room Air 03/27/25 02:30 03/27/25 02:30 03/27/25 03:00 Pulse Rate 69 Respiratory Rate 13 Blood Pressure 121/76 130/79 Pulse Oximetry 97 Oxygen Delivery Method 03/27/25 03:00 03/27/25 03:28 Pulse Rate 69 69 Respiratory Rate 16 Blood Pressure 144/83 H Pulse Oximetry 95 96 Oxygen Delivery Method Room Air <Levy Patel MD - Last Filed: 03/27/25 04:51> Orders Ordered: ED Orders 03/27/25 01:10 Troponin I Stat Discontinued Medications Lactated Ringer's (Lactated Ringers) 1,000 mls @ 1,000 mls/hr IV BOLUS ONE Stop: 03/26/25 18:26 Last Infusion: 03/26/25 19:08 Dose: Infused Documented By: Admin: 03/26/25 17:47 Dose: 1,000 mls/hr Documented By: ELEUTERIO Sodium Chloride (Normal Saline 0.9%) 1,000 mls @ 1,000 mls/hr IV BOLUS ONE Stop: 03/26/25 22:32 Last Infusion: 03/26/25 23:00 Dose: Infused Documented By: Admin: 03/26/25 21:36 Dose: 1,000 mls/hr Documented By: RACHAEL Ondansetron HCl (Ondansetron 4 Mg/2 Ml Inj) 4 mg IV NOW PRN PRN Reason: Nausea And Vomiting Ondansetron HCl (Ondansetron 4 Mg Odt) 4 mg PO NOW PRN PRN Reason: Nausea And Vomiting Vital Signs Vital signs: Vital Signs - 8 hr 03/27/25 00:33 03/27/25 00:34 03/27/25 00:34 Pulse Rate 74 73 Respiratory Rate 20 1 L Blood Pressure 136/78 Pulse Oximetry 97 Oxygen Delivery Method Room Air 03/27/25 01:00 03/27/25 01:00 03/27/25 01:30 Pulse Rate 69 Respiratory Rate 18 Blood Pressure 118/71 125/79 Pulse Oximetry 95 Oxygen Delivery Method 03/27/25 01:30 03/27/25 02:00 03/27/25 02:00 Pulse Rate 69 69 Respiratory Rate 13 21 Blood Pressure 140/79 Pulse Oximetry 96 96 Oxygen Delivery Method Room Air 03/27/25 02:30 03/27/25 02:30 03/27/25 03:00 Pulse Rate 69 Respiratory Rate 13 Blood Pressure 121/76 130/79 Pulse Oximetry 97 Oxygen Delivery Method 03/27/25 03:00 03/27/25 03:28 Pulse Rate 69 69 Respiratory Rate 16 Blood Pressure 144/83 H Pulse Oximetry 95 96 Oxygen Delivery Method Room Air MDM - Dizziness <Immanuel Diamond, DO - Last Filed: 03/27/25 08:14> Lab Data Lab results narrative: 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 CTA head and neck show ascending aortic aneurysm 4.9cm. 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 Cxr Mildly low lung volumes bilaterally with bibasilar atelectasis. Cardiomegaly. NIH stroke scale 0. GCS 15. 1st set troponin normal pending 2nd set. Differential dx CVA, tia, subdural hemorrhage, stemi, nstemi, orthostatic hypotension. Pt s/o to at shift change pending final disposition. White blood cell count 5100, hemoglobin 17, platelets 101,000. Glucose 140. BUN 19 with creatinine 1.34. Serum CO2 24, sodium 136, potassium 3.5 noted. Liver functions normal. Troponin 0.034 measurable but low. Urine dip negative. COVID flu RSV swab negative. 03/26/25 16:47 03/26/25 16:47 Labs: Lab Results 03/26/25 03/26/25 03/26/25 Range/Units 16:45 16:47 17:25 WBC 5.1 (4.5-11.0) X10^3/uL RBC 5.44 (4.5-5.9) X10^6/uL Hgb 17.0 (13.5-17.5) g/dL Hct 50.4 (41-53) % MCV 92.5 (80-100) fL MCH 31.2 (26-34) PG MCHC 33.7 (30-36) % RDW 16.5 H (11.6-14.8) % Plt Count 101 L (150-400) X10^3/uL Neut % (Auto) 71.2 (50-75) % Lymph % (Auto) 16.9 L (25-40) % [place] % (Auto) 10.1 (3-14) % Eos % (Auto) 1.0 L (2-4) % Baso % (Auto) 0.8 (0-2) % Neut # (Auto) 3700 (9127-5887) /uL Lymph # (Auto) 900 L (3653-7050) /uL [place] # (Auto) 500 (0-900) /uL Eos # (Auto) 100 (0-450) /uL Baso # (Auto) 0 (0-100) /uL PT 16.5 H (9.4-12.5) SECONDS INR 1.5 H (0.9-1.3) APTT 29 (25.1-36.5) SECONDS Sodium 136 L (137-145) mmol/L Potassium 3.5 (3.4-5.1) mmol/L Chloride 102 (98-107) mmol/L Carbon Dioxide 24 (22-32) mmol/L BUN 19 (9-20) mg/dL Creatinine 1.34 H (0.66-1.25) mg/dL Estimated GFR 53 L (>60) mL/min BUN/Creatinine Ratio 14.2 (6-22) Glucose 140 H (70-99) mg/dL POC Whole Bld Glucose 148 H (70-99) mg/dL Calcium 10.3 H (8.4-10.2) mg/dL Total Bilirubin 1.9 H (0.2-1.3) mg/dL AST 35 (17-59) IU/L ALT 24 (<50) IU/L Alkaline Phosphatase 50 (38-126) U/L Total Creatine Kinase 160 (55-170) U/L Troponin I 0.034 (0.01-0.034) ng/mL Total Protein 7.4 (6.3-8.2) g/dL Albumin 4.6 (3.5-5.0) g/dL Globulin 2.8 (1.7-4.1) g/dL Albumin/Globulin Ratio 1.6 (1.0-2.8) U Opiates 300ng/mL cut (Negative) Ur Oxycodone Screen (Negative) Urine Methadone Screen (Negative) Ur Barbiturates Screen (Negative) U Tricyclic Antidepress (Negative) Ur Phencyclidine Scrn (Negative) Ur Amphetamines Screen (Negative) U Methamphetamines Scrn (Negative) Ur MDMA Scrn (Ecstasy) (Negative) U Benzodiazepines Scrn (Negative) Urine Cocaine Screen (Negative) U Marijuana (THC) Screen (Negative) Urine pH (Normal) Urine Specific [place] (Normal) Ur Creatinine (Normal) SARS-CoV-2 (PCR) Negative (Negative) Influenza A (RT-PCR) Flu a negative (NEGATIVE) Influenza B (RT-PCR) Flu b negative (NEGATIVE) RSV (PCR) Negative (Negative) 03/26/25 03/26/25 03/27/25 Range/Units 19:10 19:54 01:10 WBC (4.5-11.0) X10^3/uL RBC (4.5-5.9) X10^6/uL Hgb (13.5-17.5) g/dL Hct (41-53) % MCV (80-100) fL MCH (26-34) PG MCHC (30-36) % RDW (11.6-14.8) % Plt Count (150-400) X10^3/uL Neut % (Auto) (50-75) % Lymph % (Auto) (25-40) % [place] % (Auto) (3-14) % Eos % (Auto) (2-4) % Baso % (Auto) (0-2) % Neut # (Auto) (4850-5322) /uL Lymph # (Auto) (8638-4765) /uL [place] # (Auto) (0-900) /uL Eos # (Auto) (0-450) /uL Baso # (Auto) (0-100) /uL PT (9.4-12.5) SECONDS INR (0.9-1.3) APTT (25.1-36.5) SECONDS Sodium (137-145) mmol/L Potassium (3.4-5.1) mmol/L Chloride (98-107) mmol/L Carbon Dioxide (22-32) mmol/L BUN (9-20) mg/dL Creatinine (0.66-1.25) mg/dL Estimated GFR (>60) mL/min BUN/Creatinine Ratio (6-22) Glucose (70-99) mg/dL POC Whole Bld Glucose (70-99) mg/dL Calcium (8.4-10.2) mg/dL Total Bilirubin (0.2-1.3) mg/dL AST (17-59) IU/L ALT (<50) IU/L Alkaline Phosphatase (38-126) U/L Total Creatine Kinase (55-170) U/L Troponin I 0.040 H 0.039 H (0.01-0.034) ng/mL Total Protein (6.3-8.2) g/dL Albumin (3.5-5.0) g/dL Globulin (1.7-4.1) g/dL Albumin/Globulin Ratio (1.0-2.8) U Opiates 300ng/mL cut Negative (Negative) Ur Oxycodone Screen Negative (Negative) Urine Methadone Screen Negative (Negative) Ur Barbiturates Screen Negative (Negative) U Tricyclic Antidepress Negative (Negative) Ur Phencyclidine Scrn Negative (Negative) Ur Amphetamines Screen Negative (Negative) U Methamphetamines Scrn Negative (Negative) Ur MDMA Scrn (Ecstasy) Negative (Negative) U Benzodiazepines Scrn Negative (Negative) Urine Cocaine Screen Negative (Negative) U Marijuana (THC) Screen Positive H (Negative) Urine pH Normal (Normal) Urine Specific [place] Normal (Normal) Ur Creatinine Normal (Normal) SARS-CoV-2 (PCR) (Negative) Influenza A (RT-PCR) (NEGATIVE) Influenza B (RT-PCR) (NEGATIVE) RSV (PCR) (Negative) Urine Dip Bedside Urine Glucose 100 mg/dl Bedside Urine Bilirubin - Negative Bedside Urine Ketone - Negative Urine Specific [place] 1.010 Bedside Urine Occult Blood + Bedside Urine pH 6.5 Bedside Urine Protein + 30 Bedside Urine Urobilinogen 2+ 4mg Bedside Urine Nitrite - Negative Bedside Urine Leukocytes - Negative Esterase <Levy Patel MD - Last Filed: 03/27/25 04:51> Lab Data Attestation: I reviewed the patient's lab results. Lab results narrative: White blood cell count 5100, hemoglobin 17, platelets 101,000. Glucose 140. BUN 19 with creatinine 1.34. Serum CO2 24, sodium 136, potassium 3.5 noted. Liver functions normal. Troponin 0.034 measurable but low. Urine dip negative. COVID flu RSV swab negative. Labs: Lab Results 03/26/25 03/26/25 03/26/25 Range/Units 16:45 16:47 17:25 WBC 5.1 (4.5-11.0) X10^3/uL RBC 5.44 (4.5-5.9) X10^6/uL Hgb 17.0 (13.5-17.5) g/dL Hct 50.4 (41-53) % MCV 92.5 (80-100) fL MCH 31.2 (26-34) PG MCHC 33.7 (30-36) % RDW 16.5 H (11.6-14.8) % Plt Count 101 L (150-400) X10^3/uL Neut % (Auto) 71.2 (50-75) % Lymph % (Auto) 16.9 L (25-40) % [place] % (Auto) 10.1 (3-14) % Eos % (Auto) 1.0 L (2-4) % Baso % (Auto) 0.8 (0-2) % Neut # (Auto) 3700 (8898-3146) /uL Lymph # (Auto) 900 L (2029-8475) /uL [place] # (Auto) 500 (0-900) /uL Eos # (Auto) 100 (0-450) /uL Baso # (Auto) 0 (0-100) /uL PT 16.5 H (9.4-12.5) SECONDS INR 1.5 H (0.9-1.3) APTT 29 (25.1-36.5) SECONDS Sodium 136 L (137-145) mmol/L Potassium 3.5 (3.4-5.1) mmol/L Chloride 102 (98-107) mmol/L Carbon Dioxide 24 (22-32) mmol/L BUN 19 (9-20) mg/dL Creatinine 1.34 H (0.66-1.25) mg/dL Estimated GFR 53 L (>60) mL/min BUN/Creatinine Ratio 14.2 (6-22) Glucose 140 H (70-99) mg/dL POC Whole Bld Glucose 148 H (70-99) mg/dL Calcium 10.3 H (8.4-10.2) mg/dL Total Bilirubin 1.9 H (0.2-1.3) mg/dL AST 35 (17-59) IU/L ALT 24 (<50) IU/L Alkaline Phosphatase 50 (38-126) U/L Total Creatine Kinase 160 (55-170) U/L Troponin I 0.034 (0.01-0.034) ng/mL Total Protein 7.4 (6.3-8.2) g/dL Albumin 4.6 (3.5-5.0) g/dL Globulin 2.8 (1.7-4.1) g/dL Albumin/Globulin Ratio 1.6 (1.0-2.8) U Opiates 300ng/mL cut (Negative) Ur Oxycodone Screen (Negative) Urine Methadone Screen (Negative) Ur Barbiturates Screen (Negative) U Tricyclic Antidepress (Negative) Ur Phencyclidine Scrn (Negative) Ur Amphetamines Screen (Negative) U Methamphetamines Scrn (Negative) Ur MDMA Scrn (Ecstasy) (Negative) U Benzodiazepines Scrn (Negative) Urine Cocaine Screen (Negative) U Marijuana (THC) Screen (Negative) Urine pH (Normal) Urine Specific [place] (Normal) Ur Creatinine (Normal) SARS-CoV-2 (PCR) Negative (Negative) Influenza A (RT-PCR) Flu a negative (NEGATIVE) Influenza B (RT-PCR) Flu b negative (NEGATIVE) RSV (PCR) Negative (Negative) 03/26/25 03/26/25 03/27/25 Range/Units 19:10 19:54 01:10 WBC (4.5-11.0) X10^3/uL RBC (4.5-5.9) X10^6/uL Hgb (13.5-17.5) g/dL Hct (41-53) % MCV (80-100) fL MCH (26-34) PG MCHC (30-36) % RDW (11.6-14.8) % Plt Count (150-400) X10^3/uL Neut % (Auto) (50-75) % Lymph % (Auto) (25-40) % [place] % (Auto) (3-14) % Eos % (Auto) (2-4) % Baso % (Auto) (0-2) % Neut # (Auto) (4041-5397) /uL Lymph # (Auto) (2832-0960) /uL [place] # (Auto) (0-900) /uL Eos # (Auto) (0-450) /uL Baso # (Auto) (0-100) /uL PT (9.4-12.5) SECONDS INR (0.9-1.3) APTT (25.1-36.5) SECONDS Sodium (137-145) mmol/L Potassium (3.4-5.1) mmol/L Chloride (98-107) mmol/L Carbon Dioxide (22-32) mmol/L BUN (9-20) mg/dL Creatinine (0.66-1.25) mg/dL Estimated GFR (>60) mL/min BUN/Creatinine Ratio (6-22) Glucose (70-99) mg/dL POC Whole Bld Glucose (70-99) mg/dL Calcium (8.4-10.2) mg/dL Total Bilirubin (0.2-1.3) mg/dL AST (17-59) IU/L ALT (<50) IU/L Alkaline Phosphatase (38-126) U/L Total Creatine Kinase (55-170) U/L Troponin I 0.040 H 0.039 H (0.01-0.034) ng/mL Total Protein (6.3-8.2) g/dL Albumin (3.5-5.0) g/dL Globulin (1.7-4.1) g/dL Albumin/Globulin Ratio (1.0-2.8) U Opiates 300ng/mL cut Negative (Negative) Ur Oxycodone Screen Negative (Negative) Urine Methadone Screen Negative (Negative) Ur Barbiturates Screen Negative (Negative) U Tricyclic Antidepress Negative (Negative) Ur Phencyclidine Scrn Negative (Negative) Ur Amphetamines Screen Negative (Negative) U Methamphetamines Scrn Negative (Negative) Ur MDMA Scrn (Ecstasy) Negative (Negative) U Benzodiazepines Scrn Negative (Negative) Urine Cocaine Screen Negative (Negative) U Marijuana (THC) Screen Positive H (Negative) Urine pH Normal (Normal) Urine Specific [place] Normal (Normal) Ur Creatinine Normal (Normal) SARS-CoV-2 (PCR) (Negative) Influenza A (RT-PCR) (NEGATIVE) Influenza B (RT-PCR) (NEGATIVE) RSV (PCR) (Negative) Urine Dip Bedside Urine Glucose 100 mg/dl Bedside Urine Bilirubin - Negative Bedside Urine Ketone - Negative Urine Specific [place] 1.010 Bedside Urine Occult Blood + Bedside Urine pH 6.5 Bedside Urine Protein + 30 Bedside Urine Urobilinogen 2+ 4mg Bedside Urine Nitrite - Negative Bedside Urine Leukocytes - Negative Esterase Imaging Data Chest x-ray: Radiologist's Impression: [address] [address] XRay Report Signed Patient: Ramo Pickering MR#: [id number] : 1945 Acct:[id number] Age/Sex: 79 / M Date of Service: 03/26/25 Loc: ED Accession Number: [id number] Procedure: XR chest 1V Ordering Provider: Immanuel Diamond D.O. PROCEDURE: XR CHEST 1V INDICATIONS: Possible stroke TECHNIQUE: One view of the chest was acquired. COMPARISON: [facility], CR, XR CHEST 2 VIEWS, 12/16/2022, 13:30. [facility], CR, XR CHEST 1V, 01/27/2022, 15:04. FINDINGS: Surgical changes and devices: Cardiac pacemaker is seen with pulse generator in the left chest. Sternotomy wires, mediastinal clips, and prosthetic heart valve are present. Lungs and pleura: Mildly low lung volumes bilaterally with mild bibasilar atelectasis. No pleural effusions or pneumothorax. Mediastinum: Cardiac silhouette is enlarged. Bones and chest wall: Chronic deformity of the right 4th rib may be related to prior surgery. No suspicious bony lesions. Overlying soft tissues appear unremarkable. IMPRESSION: Mildly low lung volumes bilaterally with bibasilar atelectasis. Cardiomegaly. Approved by: Melvin Tran M.D. on 03/26/2025 at 17:16 CT scan - head: Radiologist's Impression: Ramo Pickering?(Ector)??79??M??1945 ? Allergy/Adv: Sulfa (Sulfonamide Antibiotics) [address] [address] [address] Scan Report Signed Patient: Ramo Pickering MR#: [id number] : 1945 Acct:[id number] Age/Sex: 79 / M Date of Service: 03/26/25 Loc: ED Accession Number: [id number] Procedure: CT Stroke Ordering Provider: Immanuel Diamond D.O. PROCEDURE: CT STROKE INDICATIONS: Positive BE-FAST, Stroke symptoms TECHNIQUE: Noncontrast 4.5 mm thick angled axial sections acquired from the foramen magnum to the vertex, with coronal reformats. For radiation dose reduction, the following was used: automated exposure control, adjustment of mA and/or kV according to patient size. COMPARISON: None. FINDINGS: Image quality: Diagnostic. CSF spaces: Basal cisterns are patent. No extra-axial fluid collections. Ventricles are normal in size and shape. Brain: No midline shift. No intracranial mass effect or hemorrhage. [place]-white matter interface is normal. Skull and face: Calvarium and visualized facial bones are intact, without suspicious lesions. Sinuses: Visualized sinuses and mastoids are clear. IMPRESSION: No acute intracranial pathology. This study fulfills neurological imaging criteria for inclusion or exclusion of acute stroke therapies based on available published neurological imaging guidelines. Dictated by: Nguyễn Marcum M.D. on 03/26/2025 at 17:00 Approved by: Nguyễn Marcum M.D. on 03/26/2025 at 17:05 CTA - brain/neck: Radiologist's Impression: [place] [address] CT Scan Report Signed Patient: Ramo Pickering MR#: [id number] : 1945 Acct:[id number] Age/Sex: 79 / M Date of Service: 03/26/25 Loc: ED Accession Number: [id number] Procedure: CT angio head and neck Ordering Provider: Immanuel Diamond D.O. PROCEDURE: CT ANGIO HEAD AND NECK INDICATIONS: sudden onset dizz TECHNIQUE: After the administration of intravenous contrast, 1 mm thick sections acquired from the aortic arch through the [place]. 3-dimensional qpzwcoa-umigqkhex-kqvyrkfaxj (MIP) and/or volume rendering reformats were acquired of the central intracranial vasculature and neck separately. For radiation dose reduction, the following was used: automated exposure control, adjustment of mA and/or kV according to patient size. COMPARISON: None. FINDINGS: Image quality: Diagnostic. Cerebral CT Angiogram: Internal carotid arteries: There is no occlusion. There is also atherosclerotic disease with mild stenosis in the cavernous ICA bilaterally. Anterior cerebral arteries: Unremarkable. No significant stenosis. No occlusion. No aneurysm. Middle cerebral arteries: Unremarkable. No significant stenosis. No occlusion. No aneurysm. Posterior cerebral arteries: Unremarkable. No significant stenosis. No occlusion. No aneurysm. Basilar artery: Unremarkable. No significant stenosis. No occlusion. No aneurysm. Vertebral arteries: No occlusion Dural venous sinuses: Unremarkable given phase of enhancement. Other: Arterial phase appearance of the brain parenchyma is unremarkable. Neck CT Angiogram: Internal carotid arteries: Atherosclerotic plaque with moderate stenosis in the proximal portion of the right ICA. Common carotid arteries: Unremarkable. No significant stenosis. No dissection or occlusion. External carotid arteries: Unremarkable. No occlusion. Vertebral arteries: There is a dominant left vertebral artery. Atherosclerotic disease with mild stenosis at the left vertebral artery origin. There is also mild to moderate multifocal stenosis in the right vertebral especially proximally. Aortic Arch and Mediastinum: There is enlargement of the distal ascending aorta measuring 4.9 cm. . Other: Arterial phase soft tissues of the neck and chest are unremarkable. IMPRESSION: 1. No signs of intracranial large vessel occlusion. 2. 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 3. There is ascending aortic aneurysm measuring at least 4.9 cm. This can be further assessed with chest CTA. Any quantitative measurements of stenosis were performed using NASCET criteria. Impression communicated with Dr. Diamond at 5:12 p.m.. Dictated by: Nguyễn Marcum M.D. on 03/26/2025 at 17:05 Approved by: Nguyễn Marcum M.D. on 03/26/2025 at 17:21 CT angiogram chest abdomen and pelvis: Radiologist's Impression: [place] [address] CT Scan Report Signed Patient: Ramo Pickering MR#: [id number] : 1945 Acct:[id number] Age/Sex: 79 / M Date of Service: 03/26/25 Loc: ED Accession Number: [id number] Procedure: CT angio chest abdomen pelvis Ordering Provider: Levy Patel MD PROCEDURE: CT ANGIO CHEST ABDOMEN PELVIS INDICATIONS: aortic aneurysm protocol TECHNIQUE: Precontrast 5 mm thick sections acquired from the lung apices to the iliac crests. After the administration of intravenous contrast, 2.5 mm thick sections again acquired from the lung apices to the iliac crests. Maximum intensity projection (MIP) oblique sagittal and coronal reformats were then acquired. For radiation dose reduction, the following was used: automated exposure control. COMPARISON: None. FINDINGS: Image quality: Diagnostic. AORTA: Atherosclerotic vascular calcifications. Aortic valvuloplasty. Aneurysmal dilatation of the ascending thoracic aorta measuring up to 4.7 cm at the proximal arch. There appears to be postsurgical changes from prior proximal ascending aorta repair with some irregularities of the wall. CHEST: Lower Neck: No enlarged lymph nodes. Thyroid: No thyroid nodules which require sonographic evaluation. Axillae: No enlarged lymph nodes. Chest Wall: Left chest wall pacemaker. Lungs and Pleura: No pneumothorax or pleural effusions. No consolidation or suspicious nodules. Scattered calcified granulomata. Heart: Heart size is normal. No pericardial effusion. Thoracic Vessels: Pulmonary arteries demonstrate normal size. Mediastinum and Etre: No enlarged lymph nodes. Esophagus: No wall thickening. No hiatal hernia. ABDOMEN: Liver: No solid mass. Gallbladder: Cholelithiasis without gallbladder wall thickening. Biliary ducts: No biliary dilation. Pancreas: No ductal dilation. Spleen: Size is within normal limits. Adrenal Glands: No adrenal nodules. Kidneys and Ureters: No hydronephrosis. No solid mass. No complex renal cystic lesion which requires follow up. Stomach and Bowel: Normal colonic caliber, without significant wall thickening. Diverticulosis without evidence of acute diverticulitis. Normal appendix. Peritoneum: No abnormal intraperitoneal fluid. No free air. Ventral Wall: No hernia. Abdominal Nodes: No retroperitoneal or mesenteric adenopathy by size criteria. Vessels: Inferior vena cava is normal in size. PELVIS: Pelvic Organs: Unremarkable. Bladder: Unremarkable. Pelvic Nodes: No enlarged lymph nodes. Miscellaneous: Small bilateral fat containing inguinal hernias are seen. Bones: Degenerative changes of the spine. Decreased osseous mineralization. Deformity of the right 4th rib. IMPRESSION: Aneurysmal dilatation of the ascending thoracic aorta measuring up to 4.7 cm at the proximal arch. There appears to be postsurgical changes from prior proximal ascending aorta repair with some irregularities of the wall. Recommend comparison to prior postoperative imaging. The remainder of the aorta is patent and normal in caliber. No acute findings within the chest, abdomen or pelvis. Please see above for incidental findings. Dictated by: Brian Daniels M.D. on 03/26/2025 at 21:50 Approved by: Brian Daniels M.D. on 03/26/2025 at 22:00 [facility] Narrative Medical decision making narrative: 03/26/2025, Jorge Calle. Sign-out from Dr. Diamond. 79-year-old male with history of congestive heart failure, atrial flutter on Eliquis, hyperlipidemia, CAD, CABG, bovine AVR, has generalized weakness onset 1:30 p.m.. Afebrile, sirs screen negative. Initial lab data: White blood cell count 5100, hemoglobin 17, platelets 101,000. Glucose 140. BUN 19 with creatinine 1.34. Serum CO2 24, sodium 136, potassium 3.5 noted. Liver functions normal. Troponin 0.034 measurable but low. Urine dip negative. COVID flu RSV swab negative. Chest x-ray shows low lung volumes bilaterally with bibasilar atelectasis, cardiomegaly. See radiology report. CT head no acute changes. See radiology report. CTA Head/Neck, no occlusions, moderate right ICA proximal stenosis, ascending aortic aneurysm 4.9cm consider CTA Chest. See radiology report. CTA chest abdomen and pelvis ordered. Repeat troponin pending. CT angiogram chest abdomen and pelvis. Impressions: ?Aneurysmal dilatation of the ascending thoracic aorta measuring up to 4.7 cm at the proximal arch. There appears to be postsurgical changes from prior proximal ascending aorta repair with some irregularities of the wall. Recommend comparison to prior postoperative imaging. The remainder of the aorta is patent and normal in caliber. No acute findings within the chest, abdomen or pelvis. Please see above for incidental findings. See radiology report. Copy of report provided for patient. Patient states that he has previous comparison studies over at [facility], we will request comparison, or request faxed report of most recent chest CT and/or echocardiogram. Faxed records received from [facility], there is January 2024 CTA aortogram report, does mentioned presence of tortuous angulated ascending aorta, does not provide dimensions for comparison however. 0320, Could consider consultation with Nan Short, to see if they could look at our CTA Chest study for comparison, and/or consult with thoracic surgery. Patient does not want to stay any longer. 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 Delores cerda to see if there is any change in existing studies that he believes or out there. He no longer has weakness, denies chest pain, denies shortness of breath. He would like to go home. Discharge per patient request. Discharge Plan Departure Patient Disposition: Home Clinical Impression: Generalized weakness, Thoracic aortic aneurysm Activity Restrictions/Additional Instructions: You had generalized weakness of unclear cause. EKG and serial blood tests not suggestive of heart attack at this time. Infection not identified. IV fluids given, symptoms improved. CT brain and CT angiogram of the neck vessels were originally ordered by your initial treating physician, no significant changes within those vessels. On your neck vessels study there was visualization partially of the aortic arch with mentioned of a thoracic aneurysm, you believes this was a postoperative known finding that you had a sleeve procedure done in the past. CT angiogram of the aorta was performed imaging of the chest abdomen and pelvis. There was mentioned of a thoracic aneurysm 4.7cm in the ascending aorta, there was no mentioned of the report of comparison study. We attempted to reach [facility] for records, faxed reports did mentioned tortuous ascending thoracic aorta but did not provide dimensions for comparison information on January 2024 study. You did not want to have any further evaluation. You felt better and requested to be discharged home. You stated that you would reach your grid casting machine operator helper later today during open regular clinic hours, to discuss the CT finding from today, to see if any urgent follow up as necessary. For now continue your regular chronic medications. Follow up with your grid casting machine operator helper Dr. Delores cerda later today during open hours. Return earlier to this/nearest emergency department for any change worsening symptoms or any concerns prior. Prescriptions: No Action sildenafil (pulm.hypertension) 20 mg tablet 20 mg PO DAILY PRN (Reason: sexual activity) Qty: 30 5RF Rx Instructions: Take 1-5 tablets by mouth daily as directed. testosterone cypionate 200 mg/mL kit 60 mg IM QWEEK Qty: 4 5RF aspirin 81 mg tablet,delayed release (DR/EC) 81 mg PO DAILY rosuvastatin 40 mg tablet 40 mg PO DAILY valsartan 40 mg tablet 40 mg PO DAILY ezetimibe 10 mg tablet 10 mg PO DAILY Mounjaro 2.5 mg/0.5 mL pen injector 2.5 mg SUBCUT QWEEK Qty: 2 0RF Rx Instructions: for 4 weeks Mounjaro 5 mg/0.5 mL pen injector 5 mg SUBCUT QWEEK Qty: 2 5RF Eliquis 5 mg tablet 5 mg PO BID furosemide 20 mg tablet 20 mg PO DAILY zinc 50 mg tablet 50 mg PO DAILY cholecalciferol (vitamin D3) 125 mcg (5,000 unit) capsule 125 mcg PO DAILY metoprolol succinate 25 mg tablet extended release 24 hr 12.5 mg PO DAILY amoxicillin 500 mg capsule 2,000 mg PO .prn PRN (Reason: Dental Procedures) Rx Instructions: prior to dental procedures (DME) Respironics Dreamstation CPAP Qty: 1 Dose Instruction: As directed Patient Comments: Pressure: 10-18 cmH2O DME: [facility] Rx Instructions: As directed Referrals: Sachin Osman MD [Primary Care Provider, Internal Medicine] Stand Alone Forms: Patient Portal/API
[2025-03-26 17:23] LABS: Troponin I 0.034 ng/mL (0.01-0.034)
[2025-03-26] MEDS: LACTATED RINGERS 1,000 ML 1000 ML IV (17:47)
[2025-03-26 18:33] LABS: Influenza A - CEPHEID Flu A NEGATIVE (NEGATIVE); Influenza B - CEPHEID Flu B NEGATIVE (NEGATIVE)
[2025-03-26 18:39] LABS: COVID-19 CEPHEID 4-PLEX PCR Negative (Negative)
[2025-03-26 19:47] LABS: Troponin I 0.040 ng/mL (0.01-0.034)
--- NOTE | 2025-03-26 20:41 | DI.CT.S_ITS ---
PROCEDURE: CT ANGIO CHEST ABDOMEN PELVIS INDICATIONS: aortic aneurysm protocol TECHNIQUE: Precontrast 5 mm thick sections acquired from the lung apices to the iliac crests. After the administration of intravenous contrast, 2.5 mm thick sections again acquired from the lung apices to the iliac crests. Maximum intensity projection (MIP) oblique sagittal and coronal reformats were then acquired. For radiation dose reduction, the following was used: automated exposure control. COMPARISON: None. FINDINGS: Image quality: Diagnostic. AORTA: Atherosclerotic vascular calcifications. Aortic valvuloplasty. Aneurysmal dilatation of the ascending thoracic aorta measuring up to 4.7 cm at the proximal arch. There appears to be postsurgical changes from prior proximal ascending aorta repair with some irregularities of the wall. CHEST: Lower Neck: No enlarged lymph nodes. Thyroid: No thyroid nodules which require sonographic evaluation. Axillae: No enlarged lymph nodes. Chest Wall: Left chest wall pacemaker. Lungs and Pleura: No pneumothorax or pleural effusions. No consolidation or suspicious nodules. Scattered calcified granulomata. Heart: Heart size is normal. No pericardial effusion. Thoracic Vessels: Pulmonary arteries demonstrate normal size. Mediastinum and Tere: No enlarged lymph nodes. Esophagus: No wall thickening. No hiatal hernia. ABDOMEN: Liver: No solid mass. Gallbladder: Cholelithiasis without gallbladder wall thickening. Biliary ducts: No biliary dilation. Pancreas: No ductal dilation. Spleen: Size is within normal limits. Adrenal Glands: No adrenal nodules. Kidneys and Ureters: No hydronephrosis. No solid mass. No complex renal cystic lesion which requires follow up. Stomach and Bowel: Normal colonic caliber, without significant wall thickening. Diverticulosis without evidence of acute diverticulitis. Normal appendix. Peritoneum: No abnormal intraperitoneal fluid. No free air. Ventral Wall: No hernia. Abdominal Nodes: No retroperitoneal or mesenteric adenopathy by size criteria. Vessels: Inferior vena cava is normal in size. PELVIS: Pelvic Organs: Unremarkable. Bladder: Unremarkable. Pelvic Nodes: No enlarged lymph nodes. Miscellaneous: Small bilateral fat containing inguinal hernias are seen. Bones: Degenerative changes of the spine. Decreased osseous mineralization. Deformity of the right 4th rib. IMPRESSION: Aneurysmal dilatation of the ascending thoracic aorta measuring up to 4.7 cm at the proximal arch. There appears to be postsurgical changes from prior proximal ascending aorta repair with some irregularities of the wall. Recommend comparison to prior postoperative imaging. The remainder of the aorta is patent and normal in caliber. No acute findings within the chest, abdomen or pelvis. Please see above for incidental findings. Dictated by: Brian Daniels M.D. on 03/26/2025 at 21:50 Approved by: Brian Daniels M.D. on 03/26/2025 at 22:00
[2025-03-26] MEDS: SODIUM CHLORIDE 0.9% 1,000 ML 1000 ML IV (21:36)
[2025-03-26 22:55] LABS: UR Morphine/Opiate cutoff 300 Negative (Negative); Ur Specific Gravity Normal (Normal); Urine MDMA Negative (Negative); Urine Methamphetamines Negative (Negative); Urine Tetrahydrocannabinol Positive (Negative); Urine Tricyclic Antidepressant Negative (Negative)
[2025-03-27] VITALS (9 sets, daily range): BP systolic 118–144; BP diastolic 71–83; PULSE 69–74; RESP 1–21; O2SAT 95–97
--- NOTE | 2025-03-27 00:36 | PC.NURSE ---
Pt ambulated independently to restroom. Pt reports improvement in sx, including weakness in legs. Pt has some lightheadedness but again much improved per pt.
[2025-03-27 01:48] LABS: Troponin I 0.039 ng/mL (0.01-0.034)
== END 2025-03-27 04:01 | disposition home or self-care (01) ==
PROVIDERS: Family Medicine; Emergency Provider Emergency Medicine; PCP Internal Medicine
DX: I71.21 Aneurysm of the ascending aorta, without rupture (principal); R53.1 Weakness; Z79.01 Long term (current) use of anticoagulants
CPT/HCPCS: 36415; 70450; 70496; 70498; 71045; 71275; 74174; 80053; 80305; 81003; 82550; 82962; 84484; 85025; 85610; 85730; 87637; 93005; 96360; 96361; 99285; Q9967

== ENCOUNTER → 2025-06-04 13:32 | Outpatient (CLI) | payer OTHER, SELFPAY ==
[2025-06-04 14:46] LABS: Hematocrit 53.9 % (41-53); Hemoglobin 18.3 g/dL (13.5-17.5); Mean Corpuscular HGB Conc 33.9 % (30-36); Mean Corpuscular Hemoglobin 32.0 PG (26-34); Mean Corpuscular Volume 94.3 fL (80-100); Platelet Count 106 X10^3/uL (150-400)
[2025-06-04 14:55] LABS: Hemoglobin A1C% w Est Avg Glu 5.7 % (4.0-6.0)
[2025-06-04 15:20] LABS: Blood Urea Nitrogen 19 mg/dL (9-20); Calcium 11.0 mg/dL (8.4-10.2); Carbon Dioxide 26 mmol/L (22-32); Chloride 101 mmol/L (98-107); Estimated Glomerular Filt Rate 48 mL/min (>60); Glucose 101 mg/dL (70-99); HEMOLYSIS < 15 (0-50); Potassium 4.2 mmol/L (3.4-5.1); Sodium 135 mmol/L (137-145)
[2025-06-04 15:49] LABS: Prostate Specific Antigen 1.57 ng/mL (0.10-4.00)
== END ==
PROVIDERS: PCP Internal Medicine; Referring Provider Internal Medicine; Visit Provider Internal Medicine
DX: R79.89 Other specified abnormal findings of blood chemistry (principal); E11.42 Type 2 diabetes mellitus with diabetic polyneuropathy; I25.810 Atherosclerosis of coronary artery bypass graft(s) without angina pectoris
CPT/HCPCS: 36415; 80048; 83036; 84153; 84403; 84450; 85027

== ENCOUNTER → 2025-07-31 15:58 | Outpatient (CLI) | payer OTHER, SELFPAY ==
--- NOTE | 2025-07-31 15:58 | DI.ECHO.S_ITS ---
[facility] : : [address] : : [place] : : [id number] : : Phone: [phone] Echocardiogram Report + + :Name: CRIS ROSADO Study Date: 07/31/2025 Height: 70 in : :[facility] ReadingLocation: Weight: 200 lb : : Gender: Male BSA: 2.1 m2 : :: 1945 Age: 80 yrs BP: 130/87 mmHg: :Reason For Study: S/P TAVR` : :Ordering Physician: DANG, : :CORINA Performed By: Juan Navarro : :Referring: CORINA LEONG : + + Interpretation Summary The left ventricle is normal in size. Left ventricular wall thickness is mildly increased. LVH decreased. Left ventricular ejection fraction is estimated to be 50 +/- 5%. Previously 45 to 50%. Mild improvement the right ventricle is normal size. Even though TAPSE is low, visually RV function appears to be preserved. No significant change from the previous study. There is a pacemaker lead in the right ventricle. There is a mild to moderate mitral annulus calcification with calcification of both anterior and posterior mitral leaflets and restriction of both the mitral leaflets as well. Cannot rule out mitral valve repair. MV meanPG 3.01 mmHG at a heart rate of 68 BPM. Morphologically, mild to moderate mitral stenosis. Not critical. There is moderate mitral regurgitation. Compared to the prior echo study, there has been no change in the severity of mitral regurgitation. Previous mean gradient 5.8 mmHg There is a bioprosthetic aortic valve. The prosthetic aortic valve is well-seated. The peak aortic velocity is 2.1 m/sec. The aortic valve mean gradient is 9.4 mmHg. The peak aortic velocity on the previous exam was 1.38-1.92 m/sec. There is mild perivalvular regurgitation around the prosthetic aortic valve. The IVC is of normal diameter and collapses greater than 50% with a sniff. This suggests a low right atrial pressure of 3 mm Hg. Procedure: A two-dimensional transthoracic echocardiogram with color flow and Doppler was performed. The study quality was technically adequate. Comparison is made with the echocardiogram of 12/05/2021. The heart rate ranged between 70 bpm during the study. The patient has a paced rhythm. Left Ventricle: The left ventricle is normal in size. Left ventricular wall thickness is mildly increased. There is no thrombus. This is unchanged compared to the previous study. Left ventricular ejection fraction is estimated to be 50 +/- 5%. Septal motion is consistent with conduction abnormality. There is septal wall hypokinesis. Compared to the prior exam, the inferior wall motion abnormality has increased in severity. MV E/A: 0.79 Med Peak E' Jose: 4.6 cm/sec E/E' med: 22.8. Right Ventricle: The right ventricle is normal size. Even though TAPSE is low, visually RV function appears to be preserved. No significant change from the previous study. There is a pacemaker lead in the right ventricle. Atria: The left atrium is mildly dilated. Right atrial size is normal. There is no Doppler evidence for an interatrial shunt. Mitral Valve: There is mild mitral annular calcification. Anterior and posterior mitral valve leaflets appear thickened with restricted motion of the posterior mitral valve leaflet. There is a mild to moderate mitral annulus calcification with calcification of both anterior and posterior mitral leaflets and restriction of both the mitral leaflets as well. Cannot rule out mitral valve repair. MV meanPG 3.01 mmHG at a heart rate of 68 BPM. Morphologically, mild to moderate mitral stenosis. Not critical. There is moderate mitral regurgitation. Compared to the prior echo study, there has been no change in the severity of mitral regurgitation. Previous mean gradient 5.8 mmHg. There is moderate mitral regurgitation. BP 130/87. Aortic Valve: TAVR. There is a bioprosthetic aortic valve. The prosthetic aortic valve is well-seated. There is mild perivalvular regurgitation around the prosthetic aortic valve. The peak aortic velocity is 2.1 m/sec. The aortic valve mean gradient is 9.4 mmHg. sev ratio: 0.51. The peak aortic velocity on the previous exam was 1.38-1.92 m/sec. Compared to the prior echo study, there has been no change in the severity of aortic regurgitation. Tricuspid Valve: The tricuspid valve is not well visualized, but is grossly normal. There is trace tricuspid regurgitation. Pulmonary artery pressures cannot be estimated because of the lack of a measurable TR jet velocity but the IVC suggests a CVP of around 3 mmHg. Pulmonic Valve: The pulmonic valve is not well seen, but is grossly normal. There is mild pulmonic regurgitation. Great Vessels: The aortic root is normal size. The ascending aorta could not be visualized. The aortic arch could not be visualized. The pulmonary is not well visualized. The IVC is of normal diameter and collapses greater than 50% with a sniff. This suggests a low right atrial pressure of 3 mm Hg. Pericardium/ Pleura There is no pericardial effusion. MMode/2D Measurements & Calculations LVIDd: 5.0 cm LVOT diam: 2.2 cm LVIDs: 3.3 cm Ao root diam: 4.1 cm FS: 33.2 % EPSS: 1.2 cm IVSd: 1.2 cm LVPWd: 1.2 cm LV cox. diameter/BSA (cm/m^2): 2.4 LV sys. diameter/BSA (cm/m^2): 1.6 LA A2 area: 21.3 cm2 RA long axis: 5.2 cm LA A4 area: 23.2 cm2 RA area: 11.2 cm2 LA length (vol): 6.1 cm RA vol: 20.5 ml LA vol: 68.5 ml RA : 9.8 ml/m2 LA vol index: 32.8 ml/m2 IVC diam: 1.4 cm TAPSE: 1.3 cm Doppler Measurements & Calculations Ao V2 max: 212.5 cm/sec LVOT Max Jose: 87.3 cm/sec Ao V2 mean: 141.7 cm/sec LV V1 max P.1 mmHg Ao max P.1 mmHg LV V1 VTI: 16.5 cm Ao mean P.4 mmHg NUNO(I,D): 2.0 cm2 Ao V2 VTI: 32.4 cm NUNO(V,D): 1.6 cm2 sev ratio: 0.51 NUNO indexed to BSA (cm^2/m^2): 0.95 MV E max jose: 103.9 cm/sec PA V2 max: 117.0 cm/sec MV A max jose: 131.1 cm/sec PA V2 mean: 78.2 cm/sec MV E/A: 0.79 PA mean P.9 mmHg Med Peak E' Jose: 4.6 cm/sec PA pr(Accel): 28.9 mmHg E/E' med: 22.8 Lat Peak E' Jose: 5.7 cm/sec E/E' lat: 18.3 E/e' average: 20.6 MV dec time: 0.22 sec MVA(VTI): 1.9 cm2 MV V2 mean: 82.2 cm/sec SV(LVOT): 64.4 ml MV mean P.0 mmHg MV V2 VTI: 34.7 cm Reading Physician:11:36 AM
== END ==
LOC: ECHO 15:58
PROVIDERS: PCP Internal Medicine; Referring Provider Internal Medicine Cardiovascular Disease; Visit Provider Internal Medicine Cardiovascular Disease
DX: I08.0 Rheumatic disorders of both mitral and aortic valves (principal); Z95.2 Presence of prosthetic heart valve
CPT/HCPCS: 93306